=== PATIENT | female | born 1990 | race Caucasian/White ===

== ENCOUNTER 2020-07-20 22:14 | Inpatient (IN) | payer BC ==
--- NOTE | 2020-07-20 22:40 | PDOC ---
History of Present Illness - General Chief Complaint: Pain Stated Complaint: LT KNEE PAIN Time Seen by Provider: 07/20/20 22:29 History Source: Patient Exam Limitations: No Limitations - History of Present Illness Initial Comments: 07/20/20 22:33 This is a 30-year-old female who comes in complaining of left knee pain and a fever of 101. Patient injured her knee when she twisted it approximately 4 days ago. Patient does wear a brace and had an x-ray that was negative for any acute pathology. Patient has a history significant for ulcerative colitis and is on some immunosuppressant drugs for her ulcerative colitis. Patient comes in concerned that her knee could be the source of her fever. Allergies: as per nursing notes Past Medical History: As per HPI Social history: Lives with family. No smoking. No alcohol. No illicit drugs. Surgical history: None General: No fevers or chills, no weakness, no weight loss HEENT: No change in vision. No sore throat,. No ear pain CardioVascular: no chest discomfort. No shortness of breath Respiratory:No cough, or wheezing. Gastrointestinal: no nausea, vomiting, diarrhea or constipation, No rectal bleeding Genitourinary: No dysuria, hematuria, or frequency Musculoskeletal: No joint or muscle pain or swelling Neurologic: No headache, vertigo, dizziness or loss of consciousness Psychiatric: nor depression Skin: No rashes or easy bruising Endocrine: no increased thirst or abnormal weight change Allergic: no skin or latex allergy All other systems reviewed and normal GENERAL: The patient is awake, alert, and fully oriented, in no acute distress. HEENT:Head is normal with no signs of trauma. Eyes: Pupils equal, round and reactive to light, Ears, and Throat are normal. Neck is supple. No Lymphadenopathy. EXTREMITIES: The left knee is swollen with erythema and warmth in comparison to the right knee. There is an area of ascending lymphangitis medially Neurovascular distally is intact. NEUROLOGICAL: Normal speech, normal gait. PSYCH: Normal mood, normal affect. SKIN: Warm, Dry, normal turgor, no rashes or lesions noted. Assessment and plan: This is a 30-year-old female with ulcerative colitis on imm unosuppressants therapy who comes in with a red hot swollen knee with some ascending lymphangitis. Patient given Zosyn and will be admitted for treatment of cellulitis rule out septic joint Past History - Medical History Allergies/Adverse Reactions: Allergies Allergy/AdvReac Type Severity Reaction Status Date / Time codeine Allergy Verified 07/20/20 22:18 COPD: No GI Disorders: Yes (ULCERATIVE COLITIS) - Reproductive History Is Patient Now?: No - Psycho-Social/Smoking History Smoking History: Never smoked *Physical Exam - Vital Signs Last Vital Signs Temp Pulse Resp BP Pulse Ox 16 0/0 L 07/20/20 22:18 07/20/20 22:18 ED Treatment Course - LABORATORY CBC & Chemistry Diagram: 07/20/20 22:45 07/20/20 22:45 Discharge - Discharge Information Problems reviewed: Yes Clinical Impression/Diagnosis: Cellulitis of left leg Condition: Stable - Admission Yes - Follow up/Referral - Patient Discharge Instructions - Post Discharge Activity
[2020-07-20 23:11] LABS: BASO % 0.3 % (0-2.0); EOS % 0.8 % (0-4.5); HEMATOCRIT 44.5 % (32.4-45.2); HEMOGLOBIN 14.9 GM/dl (10.7-15.3); LYMPH % 22.2 % (8-40); MCH 30.7 pg (25.7-33.7); MCHC 33.5 g/dl (32.0-36.0); MEAN CELL VOLUME 91.8 fl (80-96); MEAN PLT VOLUME 9.4 fl (7.5-11.1); MONO % 6.6 % (3.8-10.2); NEUT % 70.1 % (42.8-82.8); PLATELET COUNT 449 K/MM3 (134-434); RBC 4.84 M/mm3 (3.60-5.2); RDW 13.3 % (11.6-15.6); WHITE BLOOD COUNT 14.3 K/mm3 (4.0-10.8)
[2020-07-20 23:20] LABS: ALBUMIN 4.4 g/dl (3.4-5.0); BILIRUBIN,TOTAL 1.6 mg/dl (0.2-1); CALCIUM 9.8 mg/dl (8.5-10); CREATININE 0.7 mg/dl (0.55-1.3); POTASSIUM 4.3 mmol/L (3.5-5.1); TOT PROT 8.7 g/dl (6.4-8.2)
[2020-07-21] MEDS ORDERED: PIPERACILLIN/TAZOB 3.375 GM 3.375 GM in DEXTROSE 5%-WATER - 50 ML IVPB ONE (00:33)
[2020-07-21] MEDS ORDERED: PIPERACILLIN/TAZOBACTAM 3.375 GM VIAL IVPB ONE (00:50)
[2020-07-21] MEDS ORDERED: IBUPROFEN 400 MG TABLET (FP) PO PRN (01:01)
[2020-07-21] MEDS: PIPERACILLIN/TAZOB 3.375 GM 3.375 GM in DEXTROSE 5%-WATER - 50 ML IVPB SCH ×2 (01:19→10:19)
[2020-07-21 02:11] LABS: EPI CELLS 10 /uL (0-25.1); HYALINE CASTS 0 /uL (0-3.1); PH,URINE 6.5 (5.0-8.0); URINE APPEARANCE CLEAR; URINE BACTERIA 321 /uL (0-1359); URINE BILIRUBIN NEGATIVE (NEGATIVE); URINE COLOR YELLOW; URINE GLUCOSE (UA) NEGATIVE (NEGATIVE); URINE KETONE NEGATIVE (NEGATIVE); URINE LEUK ESTERASE 1+ (NEGATIVE); URINE NITRITE NEGATIVE (NEGATIVE); URINE PROTEIN NEGATIVE (NEGATIVE); URINE RBC 17 /uL (0-23.9); URINE UROBILINOGEN 0.2 mg/dL (0.2-1.0); URINE WBC 74 /uL (0-25.8)
--- NOTE | 2020-07-21 09:40 | HP ---
CHIEF COMPLAINT: PCP: HISTORY OF PRESENT ILLNESS: This is a 30-year-old female medical condition ulcerative colitis, on some immunosuppressant drugs, who comes in complaining of left knee pain and a fever of 101. Patient injured her knee when she twisted it approximately 4 days ago. Patient does wear a brace and had an x-ray that was negative for any acute pathology. in ED, pt received zosyn and had allergic reaction, benadryl IV given. AM labs ordered ER course was notable for: (1)WBC 14.6 (2) ESR 21 (07/21) (3) Recent Travel: PAST MEDICAL HISTORY: [facility] PAST SURGICAL HISTORY:none Social History: Smoking:denies Alcohol:denies Drugs: denies Allergies codeine Allergy (Verified 07/20/20 22:18) HOME MEDICATIONS: Home Medications Medication Instructions Recorded Apriso 07/21/20 Mercaptopurine 07/21/20 Remicade Infusion - 07/21/20 Vienva-28 Tablet 07/21/20 REVIEW OF SYSTEMS CONSTITUTIONAL: +fever Absent: chills, diaphoresis, generalized weakness, malaise, loss of appetite, weight change HEENT: Absent: rhinorrhea, nasal congestion, throat pain, throat swelling, difficulty swallowing, mouth swelling, ear pain, eye pain, visual changes CARDIOVASCULAR: Absent: chest pain, syncope, palpitations, irregular heart rate, lightheadedness, peripheral edema RESPIRATORY: Absent: cough, shortness of breath, dyspnea with exertion, orthopnea, wheezing, stridor, hemoptysis GASTROINTESTINAL: Absent: abdominal pain, abdominal distension, nausea, vomiting, diarrhea, co nstipation, melena, hematochezia GENITOURINARY: Absent: dysuria, frequency, urgency, hesitancy, hematuria, flank pain, genital pain MUSCULOSKELETAL: +left knee joint swelling, pain Absent: myalgia, arthralgia, pain, neck pain SKIN: Absent: rash, itching, pallor HEMATOLOGIC/IMMUNOLOGIC: Absent: easy bleeding, easy bruising, lymphadenopathy, frequent infections ENDOCRINE: Absent: unexplained weight gain, unexplained weight loss, heat intolerance, cold intolerance NEUROLOGIC: Absent: headache, focal weakness or paresthesias, dizziness, unsteady gait, seizure, mental status changes, bladder or bowel incontinence PSYCHIATRIC: Absent: anxiety, depression, suicidal or homicidal ideation, hallucinations. PHYSICAL EXAMINATION Vital Signs - 24 hr 07/20/20 07/21/20 07/21/20 22:18 01:50 06:54 Temperature 99.9 F H 98 F 99.8 F H Pulse Rate 108 H 100 H 93 H Respiratory 16 18 18 Rate Blood Pressure 116/83 107/70 98/55 L O2 Sat by Pulse 98 100 100 Oximetry (%) GENERAL: Awake, alert, and fully oriented, in no acute distress. HEAD: Normal with no signs of trauma. EYES: Pupils equal, round and reactive to light, extraocular movements intact, sclera anicteric, conjunctiva clear. No lid lag. EARS, NOSE, THROAT: Ears normal, nares patent, oropharynx clear without exudates. Moist mucous membranes. NECK: Normal range of motion, supple without lymphadenopathy, JVD, or masses. LUNGS: Breath sounds equal, clear to auscultation bilaterally. No wheezes, and no crackles. No accessory muscle use. HEART: Regular rate and rhythm, normal S1 and S2 without murmur, rub or gallop. ABDOMEN: Soft, nontender, not distended, normoactive bowel sounds, no guarding, no rebound, no masses. No hepatomegaly or splenomegaly. MUSCULOSKELETAL: Normal range of motion at all joints. No bony deformities or tenderness. No CVA tenderness. UPPER EXTREMITIES: 2+ pulses, warm, well-perfused. No cyanosis. No clubbing. No peripheral edema. LOWER EXTREMITIES: left knee swelling noted, no erythema, 2+ pulses, warm, well- perfused. No calf tenderness. No peripheral edema. NEUROLOGICAL: Cranial nerves II-XII intact. Normal speech. Normal gait. PSYCHIATRIC: Cooperative. Good eye contact. Appropriate mood and affect. SKIN: Warm, dry, normal turgor, no rashes or lesions noted, normal capillary refill. Laboratory Results - last 24 hr 07/20/20 07/20/20 07/21/20 22:45 22:45 00:05 WBC 14.3 H RBC 4.84 Hgb 14.9 Hct 44.5 MCV 91.8 MCH 30.7 MCHC 33.5 RDW 13.3 Plt Count 449 H MPV 9.4 Absolute Neuts (auto) 10.1 Neutrophils % 70.1 Lymphocytes % 22.2 Monocytes % 6.6 Eosinophils % 0.8 Basophils % 0.3 ESR Sodium 139 Potassium 4.3 Chloride 104 Carbon Dioxide 24 Anion Gap 11 BUN 12.0 Creatinine 0.7 Est GFR (CKD-EPI)AfAm 132.87 Est GFR (CKD-EPI)NonAf 114.64 Random Glucose 114 H Calcium 9.8 Total Bilirubin 1.6 H AST 19 ALT 14 Alkaline Phosphatase 54 Total Protein 8.7 H Albumin 4.4 Urine Color Urine Appearance Urine pH Ur Specific [place] Urine Protein Urine Glucose (UA) Urine Ketones Urine Blood Urine Nitrite Urine Bilirubin Urine Urobilinogen Ur Leukocyte Esterase Urine WBC (Auto) Urine RBC (Auto) Urine Casts (Auto) U Epithel Cells (Auto) Urine Bacteria (Auto) Urine HCG, Qual Negative 07/21/20 07/21/20 00:15 07:40 WBC RBC Hgb Hct MCV MCH MCHC RDW Plt Count MPV Absolute Neuts (auto) Neutrophils % Lymphocytes % Monocytes % Eosinophils % Basophils % ESR 21 H Sodium Potassium Chloride Carbon Dioxide Anion Gap BUN Creatinine Est GFR (CKD-EPI)AfAm Est GFR (CKD-EPI)NonAf Random Glucose Calcium Total Bilirubin AST ALT Alkaline Phosphatase Total Protein Albumin Urine Color Yellow Urine Appearance Clear Urine pH 6.5 Ur Specific [place] 1.004 L Urine Protein Negative Urine Glucose (UA) Negative Urine Ketones Negative Urine Blood 1+ H Urine Nitrite Negative Urine Bilirubin Negative Urine Urobilinogen 0.2 Ur Leukocyte Esterase 1+ H Urine WBC (Auto) 74 Urine RBC (Auto) 17 Urine Casts (Auto) 0 U Epithel Cells (Auto) 10 Urine Bacteria (Auto) 321 Urine HCG, Qual ASSESSMENT/PLAN: Alisa Ramirez is a 30 yr old F, medical condition Ulcerative colitis, on immunosupressant drugs admitted for Admitting Diagnosis Left knee cellulitis vs Septic joint Chronic Conditions Ulcerative Colitis #Left knee Cellulitis vs septic joint -ID consult -reaction noted from Zosyn -blood cx in process -ESR 21 -MRI left LE ordered -Ortho consult #[facility] [employer] meds to brought from home -Remicade last infusion 07/13, receives Q7 weeks - [phone] (GI) Full Code Family Medical History Family History: As Documented Visit type - Emergency Visit Emergency Visit: Yes ED Registration Date: 07/21/20 Care time: The patient presented to the Emergency Department on the above date and was hospitalized for further evaluation of their emergent condition. - New Patient This patient is new to me today: Yes Date on this admission: 07/21/20 - Critical Care Critical Care patient: No
[2020-07-21 09:50] LABS: BASO % 0.8 % (0-2.0); EOS % 1.1 % (0-4.5); HEMATOCRIT 37.4 % (32.4-45.2); HEMOGLOBIN 12.6 GM/dl (10.7-15.3); LYMPH % 18.1 % (8-40); MCH 30.2 pg (25.7-33.7); MCHC 33.6 g/dl (32.0-36.0); MEAN PLT VOLUME 10.1 fl (7.5-11.1); MONO % 10.9 % (3.8-10.2); NEUT % 69.1 % (42.8-82.8); PLATELET COUNT 356 K/MM3 (134-434); RBC 4.16 M/mm3 (3.60-5.2); RDW 12.8 % (11.6-15.6); WHITE BLOOD COUNT 10.3 K/mm3 (4.0-10.8)
[2020-07-21 09:58] LABS: ALBUMIN 3.5 g/dl (3.4-5.0); BILIRUBIN,TOTAL 2.3 mg/dl (0.2-1); CALCIUM 8.9 mg/dl (8.5-10); CREATININE 0.8 mg/dl (0.55-1.3); MAGNESIUM 1.8 mg/dL (1.8-2.4); POTASSIUM 3.8 mmol/L (3.5-5.1); TOT PROT 6.9 g/dl (6.4-8.2)
[2020-07-21] MEDS ORDERED: PIPERACILLIN/TAZOB 3.375 GM 3.375 GM in DEXTROSE 5%-WATER - 50 ML IVPB SCH (10:00)
--- NOTE | 2020-07-21 10:38 | CON.ID ---
Consult Consult Specialty:: infectious diseases Referred by:: Hodan Reason for Consultation:: cellulitis of the leg - History of Present Illness Chief Complaint: swelling of the left leg /and the left knee joint History of Present Illness: 30-year-old female medical condition ulcerative colitis, on some immunosuppressant drugs, who comes in complaining of left knee pain and a fever of 101. Patient injured her knee when she twisted it approximately 4 days ago. Patient does wear a brace and had an x-ray that was negative for any acute pathology. patient was given zosyn and mentions that she developed some itching also she mentions that she actually did not twist it,but while getting up felt a crack and then the knee started swelling and then extended to the thigh - History Source History Provided By: Patient Limitations to Obtaining History: No Limitations - Past Medical History ...LMP: 07/18/20 ...: No - Smoking History Smoking history: Never smoked Home Medications - Allergies Allergies/Adverse Reactions: Allergies Allergy/AdvReac Type Severity Reaction Status Date / Time codeine Allergy Verified 07/20/20 22:18 - Home Medications Home Medications: Ambulatory Orders Apriso 07/21/20 Mercaptopurine 07/21/20 Remicade Infusion - 07/21/20 Vienva-28 Tablet 07/21/20 Review of Systems - Review of Systems Constitutional: reports: No Symptoms Eyes: reports: No Symptoms HENT: reports: No Symptoms Neck: reports: No Symptoms Cardiovascular: reports: No Symptoms Respiratory: reports: No Symptoms Gastrointestinal: reports: No Symptoms Genitourinary: reports: No Symptoms Musculoskeletal: reports: Joint Swelling, Other Integumentary: reports: No Symptoms Neurological: reports: No Symptoms Endocrine: reports: No Symptoms Hematology/Lymphatic: reports: No Symptoms Psychiatric: reports: No Symptoms Physical Exam Vital Signs: Vital Signs Temperature 99.8 F H 07/21/20 06:54 Pulse Rate 93 H 07/21/20 06:54 Respiratory Rate 18 07/21/20 06:54 Blood Pressure 98/55 L 07/21/20 06:54 O2 Sat by Pulse Oximetry (%) 100 07/21/20 09:00 Constitutional: Yes: Well Nourished, Calm, Mild Distress, Thin Eyes: Yes: Conjunctiva Clear HENT: Yes: Atraumatic, Normocephalic Neck: Yes: Supple, Trachea Midline Cardiovascular: Yes: Regular Rate and Rhythm Respiratory: Yes: Regular, CTA Bilaterally Gastrointestinal: Yes: Normal Bowel Sounds, Soft Musculoskeletal: Yes: WNL Extremities: Yes: Other (swelling of the leg from knee joint upwards) Integumentary: No: Erythema Neurological: Yes: Alert, Oriented Psychiatric: Yes: Alert, Oriented Labs: CBC, BMP 07/21/20 07:40 07/21/20 07:40 Imaging - Results Chest X-ray: Report Reviewed, Image Reviewed Assessment/Plan this patient with h/o of colitis coming in with swelling of the knee joint and the thigh left side s/p getting up from the floor and hearing a crack at this moment the patient is ahving swelling of the leg no erythema i have low suspicion for cellulitis i think patient needs mri of the leg to r/o any pathological cause inside i am going to hold off on any abx and monitor wbc i am leaning more towards trauma side from her history if patient spikes any fever or wbc starts increasing will start abx
--- NOTE | 2020-07-21 11:49 | CONSULT ---
Consult - text type - Consultation Consultation Note: ORTHOPEDIC SURGERY CONSULTATION NOTE Department of Orthopedic Surgery HISTORY OF PRESENT ILLNESS Ms. Ramirez is a 30 year old female who presents to [facility] with left knee pain and swelling. The orthopedic service was consulted for rule out septic joint. The patient states she felt a crack in her knee approximately 1 week ago that caused pain and swelling in her eft knee. She was seen on Thursday by Dr. Mccabe, who o rdered an MRI of her knee. The patient states she developed fever like symptoms last night and came to the ER. The patient notes pain and swelling in her knee, that causes her difficulty ambulating. Denies any other injuries. Denies numbness, tingling. Denies tobacco use, drug use, alcohol abuse. Patient is on immunosuppressants for UC. The patient lives with family and uses no assistive devices at baseline. FAMILY HISTORY non-contributory REVIEW OF SYMPTOMS A twelve-point review of systems was performed and was negative except as noted in HPI. PHYSICAL EXAM Constitutional: Alert and oriented to person, place, and time. Appears well- developed and well-nourished. No acute distress, appropriate mood and affect. Left Lower Extremity: Skin warm, dry, and intact; no lesions, rashes or ulcers noted. There is an effusion present. Muscle mass otherwise equal and symmetric to contralateral side. No atrophy noted. No masses noted. Patient has medial joint line tenderness; nontender throughout rest of extremity. No cords or calf tenderness No significant calf/ankle edema. Patient has LROM, however has no pain with ROM through arc of 0-60 degrees of flexion passively. Full passive and active ROM of the ankle and foot and toes, free from pain. Joints stable with no pathologic laxity. EHL/TA/GS motor intact; SILT distally; 2+ DP pulses; Cap refill brisk. Tone and reflexes normal. Active Problems Problem Status Category Onset Cellulitis of left leg Acute Medical Social History Smoking history Never smoked Allergies Allergy/AdvReac Type Severity Reaction Status Date / Time codeine Allergy Verified 07/20/20 22:18 Active Medications Generic Name Dose Route Start Last Admin Trade Name Freq PRN Reason Stop Dose Admin Acetaminophen 650 mg 07/21/20 00:59 Tylenol - PO Q6H PRN FEVER Piperacillin Sod/Tazobactam 50 mls @ 100 mls/hr 07/21/20 02:00 07/21/20 10:19 Sod 3.375 gm/ Dextrose IVPB 07/21/20 18:29 Not Given Q8H-IV PRIMO Protocol Ibuprofen 400 mg 07/21/20 01:01 Motrin - PO Q6H PRN PAIN LEVEL 4 - 6 Vital Signs (last) Temp Pulse Resp BP Pulse Ox 98.4 F 96 H 18 105/65 100 07/21/20 10:47 07/21/20 10:47 07/21/20 10:47 07/21/20 10:47 07/21/20 10:47 Intake and Output 07/19/20 07/20/20 07/21/20 23:59 23:59 23:59 Intake Total 615 Balance 615 Intake: Oral 495 Oral Supplement 120 Other: Voiding Method Toilet # Unmeasured Voids Void 0 Bowel Movement No Weight 128 lb 116 lb 3.2 oz Height 5 ft 8 in 8 ft 8 in Body Mass Index (BMI) 19.4 7.5 Weight Measurement Method Standing Scale Weight Measurement Method Est/Stated by Patient Laboratory 07/21/20 07:40 07/21/20 07:40 ESR: 21 Urinalysis: +Leuk Est IMAGING MRI Knee Pending. ASSESSMENT AND PLAN Ms. Ramirez is a 30 year old female presenting with left knee pain and knee effusion with increased ESR, increased WBC yesterday, and fever yesterday. We have reviewed the imaging and clinical findings in detail, as well as their potential implications. After appropriate informed discussion, the patients knee was aspirated. 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 Fever and increased WBC and ESR likely due to +UTI. Will confirm with synovial fluid analysis. FU synovial fluid results: cell count, culture, gram stain, and crystals. NPO WBAT CBC/BMP/Coags FU CRP PROCEDURE NOTE: After obtaining informed consent, the patient's left knee was prepped in the normal sterile fashion, and 60cc's of straw-colored fluid was aspirated from her knee with an 18 gauge needle. The patient tolerated this well, and her aspira tion site was cleaned and dressed with 4x4's and an STACIE bandage. Patient reported improvement in pain symptoms, and increased ROM 0-95 degrees. All questions were answered. Thank you for involving our team in the care of this patient. We will follow the patient with you. Please call us with alfa escobedo.
[2020-07-21 13:16] LABS: INR 1.36 (0.82-1.09); PROTHROMBIN TIME (PATIENT) 15.1 SEC (10.2-13.0)
[2020-07-21 14:22] LABS: BF WBC & OTHER NUCLEATED CELLS 49886 /mm3
[2020-07-21] MEDS ORDERED: KETOROLAC TROMETHAMINE 15 MG/ML VIAL IVPUSH ONE (14:48)
[2020-07-21 15:25] LABS: BODY FLUID HISTIOCYTES 10 %; BODY FLUID MONOCYTE 2 %
[2020-07-21] MEDS: ACETAMINOPHEN 325 MG TABLET (FP) PO PRN (21:26)
[2020-07-22] MEDS: ACETAMINOPHEN 325 MG TABLET (FP) PO PRN ×2 (04:45→17:11)
[2020-07-22 08:19] LABS: BASO % 0.5 % (0-2.0); EOS % 1.3 % (0-4.5); HEMATOCRIT 37.2 % (32.4-45.2); HEMOGLOBIN 12.5 GM/dL (10.7-15.3); LYMPH % 24.7 % (8-40); MCH 29.9 pg (25.7-33.7); MCHC 33.6 g/dl (32.0-36.0); MEAN CELL VOLUME 89.1 fl (80-96); MEAN PLT VOLUME 9.1 fl (7.5-11.1); MONO % 13.2 % (3.8-10.2); NEUT % 60.3 % (42.8-82.8); PLATELET COUNT 326 K/MM3 (134-434); RBC 4.18 M/mm3 (3.60-5.2); RDW 13.7 % (11.6-15.6); WHITE BLOOD COUNT 11.1 K/mm3 (4.0-10.0)
[2020-07-22 08:44] LABS: ALBUMIN 3.2 g/dl (3.4-5.0); BILIRUBIN,TOTAL 2.3 mg/dL (0.2-1); BLOOD UREA NITROGEN 10.8 mg/dL (7-18); CALCIUM 8.8 mg/dL (8.5-10.1); CREATININE 0.8 mg/dL (0.55-1.3); MAGNESIUM 2.1 mg/dL (1.8-2.4); POTASSIUM 4.5 mmol/L (3.5-5.1); TOT PROT 7.2 g/dl (6.4-8.2)
--- NOTE | 2020-07-22 09:39 | PN ---
Progress Note (short form) - Note Progress Note: ORTHOPEDIC SURGERY PROGRESS NOTE Department of Orthopedic Surgery SUBJECTIVE No acute events overnight. No complaints currently. Denies chest pain, shortness of breath, or calf pain. No nausea or vomiting. Tolerating oral intake. Pain controlled. PHYSICAL EXAMINATION Constitutional: Alert and oriented to person, place, and time. Appears well- developed and well-nourished. No acute distress, appropriate mood and affect. Left Lower Extremity: Skin warm, dry, and intact; no lesions, rashes or ulcers noted. There is an effusion present. Muscle mass otherwise equal and symmetric to contralateral side. No atrophy noted. No masses noted. Patient has medial joint line tenderness; nontender throughout rest of extremity. No cords or calf tenderness No significant calf/ankle edema. Patient has LROM, however has no pain with ROM through arc of 0-95 degrees of flexion actively and passively. Full passive and active ROM of the ankle and foot and toes, free from pain. Joints stable with no pathologic laxity. EHL/TA/GS motor intact; SILT distally; 2+ DP pulses; Cap refill brisk. Tone and reflexes normal. DVT Exam: No evidence of DVT seen on physical exam; No cords or calf tenderness; No significant calf/ankle edema. Intake & Output 07/20/20 07/21/20 07/22/20 23:59 23:59 23:59 Intake Total 915 120 Balance 915 120 Intake: Oral 795 120 Oral Supplement 120 Other: Voiding Method Toilet Toilet # Unmeasured Voids Void 0 Bowel Movement No No Weight 128 lb 116 lb 3.2 oz Height 5 ft 8 in 8 ft 8 in Body Mass Index (BMI) 19.4 7.5 Weight Measurement Method Standing Scale Weight Measurement Method Est/Stated by Patient Active Medications Generic Name Dose Route Start Last Admin Trade Name Freq PRN Reason Stop Dose Admin Acetaminophen 650 mg 07/21/20 00:59 07/22/20 04:45 Tylenol - PO 650 mg Q6H PRN Administration FEVER Ibuprofen 400 mg 07/21/20 01:01 Motrin - PO Q6H PRN PAIN LEVEL 4 - 6 Vital Signs (last) Temp Pulse Resp BP Pulse Ox 100 F H 90 18 100/62 98 07/22/20 06:00 07/22/20 06:00 07/22/20 06:00 07/22/20 06:00 07/22/20 06:00 Laboratory (coagulation) PT with INR 15.1 SEC (10.2-13.0) H 07/21/20 13:00 Laboratory 07/22/20 06:50 07/22/20 06:50 MRI Left Knee: Large effusion, no meniscus or ligamentous injuries. No fractures, bony lesions, or significant arthrosis seen. ASSESSMENT AND PLAN Ms. Ramirez is a 30 year old female presenting with left knee pain and knee effusion with increased ESR, increased WBC, and low grade fever. We have reviewed the imaging and clinical findings in detail, as well as their potential implications. 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 Fever and increased WBC, ESR/CRP likely due to +UTI. - FU synovial fluid culture results; gram stain shows no organisms - FU Blood culture (Currently NGTD) - FU Rheumatology consult - FU Infectious disease recs - Pain control: Transition to oral pain medications, minimize narcotic use - DVT prophylaxis - Ice/Elevation of left knee - Elevate HOB, encourage oral intake - Appreciate medical management (Nutrition optimization, decubitus precautions heel/sacrum) - WBAT LLE - Continue Medical management
--- NOTE | 2020-07-22 11:39 | PN ---
Physical Exam: SUBJECTIVE: Patient seen and examined at the bedside. denies any pain of her left knee, just discomfort. OBJECTIVE: Patient is a 30 year-old female medical condition ulcerative colitis, on some immunosuppressant drugs, who comes in complaining of left knee pain and a fever of 101f. Patient injured her knee when she twisted it approximately 4 days ago. Patient does wear a brace and had an x-ray that was negative for any acute pathology. in ED, pt received zosyn and had allergic reaction, benadryl IV given. Per ID, monitor off antibiotics. Patient seen by Ortho, synovial fluid drained at bedside, gram stain pending, crystals negative. if gram stain positive, will likely go to OR. Vital Signs Period Temp Pulse Resp BP Sys/Pelletier Pulse Ox Last 24 Hr 98.0 F-100.5 F 90-99 16-18 92-105/53-62 96-100 GENERAL: The patient is awake, alert, and fully oriented, in no acute distress. HEAD: Normal with no signs of trauma. EYES: PERRL, extraocular movements intact, sclera anicteric, conjunctiva clear. No ptosis. ENT: Ears normal, nares patent, oropharynx clear without exudates, moist mucous membranes. NECK: Trachea midline, full range of motion, supple. LUNGS: Breath sounds equal, clear to auscultation bilaterally, no wheezes, no crackles, no accessory muscle use. HEART: Regular rate and rhythm, S1, S2 without murmur, rub or gallop. ABDOMEN: Soft, nontender, nondistended, normoactive bowel sounds EXTREMITIES:left knee edema, mild erythma NEUROLOGICAL: Normal speech, gait not observed. PSYCH: Normal mood, normal affect. Laboratory Results - last 24 hr 07/21/20 07/21/20 07/21/20 12:30 12:30 12:45 WBC RBC Hgb Hct MCV MCH MCHC RDW Plt Count MPV Absolute Neuts (auto) Neutrophils % Lymphocytes % Monocytes % Eosinophils % Basophils % Nucleated RBC % PT with INR INR Sodium Potassium Chloride Carbon Dioxide Anion Gap BUN Creatinine Est GFR (CKD-EPI)AfAm Est GFR (CKD-EPI)NonAf Random Glucose Calcium Magnesium Total Bilirubin AST ALT Alkaline Phosphatase C-Reactive Protein Total Protein Albumin Fluid Source Synovial Fluid WBC 94874 Fluid RBC 3337 Fluid Neutrophils 86 Fluid Lymphocytes 1 Pleural Monocytes 2 Pleural Histocytes 10 Synovial Crystals Negative Blood Type O POSITIVE Antibody Screen Negative 07/21/20 07/21/20 07/21/20 13:00 13:00 13:00 WBC RBC Hgb Hct MCV MCH MCHC RDW Plt Count MPV Absolute Neuts (auto) Neutrophils % Lymphocytes % Monocytes % Eosinophils % Basophils % Nucleated RBC % PT with INR 15.1 H INR 1.36 H Sodium Potassium Chloride Carbon Dioxide Anion Gap BUN Creatinine Est GFR (CKD-EPI)AfAm Est GFR (CKD-EPI)NonAf Random Glucose Calcium Magnesium Total Bilirubin AST ALT Alkaline Phosphatase C-Reactive Protein 12.0 H Total Protein Albumin Fluid Source Fluid WBC Fluid RBC Fluid Neutrophils Fluid Lymphocytes Pleural Monocytes Pleural Histocytes Synovial Crystals Blood Type O POSITIVE Antibody Screen 07/22/20 07/22/20 06:50 06:50 WBC 11.1 H RBC 4.18 Hgb 12.5 Hct 37.2 MCV 89.1 MCH 29.9 MCHC 33.6 RDW 13.7 Plt Count 326 MPV 9.1 Absolute Neuts (auto) 6.7 Neutrophils % 60.3 Lymphocytes % 24.7 Monocytes % 13.2 H Eosinophils % 1.3 Basophils % 0.5 Nucleated RBC % 0 PT with INR INR Sodium 137 Potassium 4.5 Chloride 106 Carbon Dioxide 27 Anion Gap 4 L BUN 10.8 Creatinine 0.8 Est GFR (CKD-EPI)AfAm 113.06 Est GFR (CKD-EPI)NonAf 97.55 Random Glucose 98 Calcium 8.8 Magnesium 2.1 Total Bilirubin 2.3 H AST 7 L ALT 12 L Alkaline Phosphatase 48 C-Reactive Protein Total Protein 7.2 Albumin 3.2 L Fluid Source Fluid WBC Fluid RBC Fluid Neutrophils Fluid Lymphocytes Pleural Monocytes Pleural Histocytes Synovial Crystals Blood Type Antibody Screen Active Medications Generic Name Dose Route Start Last Admin Trade Name Freq PRN Reason Stop Dose Admin Acetaminophen 650 mg 07/21/20 00:59 07/22/20 04:45 Tylenol - PO 650 mg Q6H PRN Administration FEVER Ibuprofen 400 mg 07/21/20 01:01 Motrin - PO Q6H PRN PAIN LEVEL 4 - 6 ASSESSMENT/PLAN: Problem List - Problems (1) Ulcerative colitis Assessment/Plan: on Remicade infusions, last received on 07/13/20 and receives q 7 weeks. Follows with GI as an outpatient. Code(s): K51.90 - ULCERATIVE COLITIS, UNSPECIFIED, WITHOUT COMPLICATIONS (2) Left knee injury Assessment/Plan: left knee swelling/possible cellulitis vs septic joint. patient treated with zosyn, but had an allergic reaction (leg welts) and given benadryl. ID gill wng. Zosyn allergy listed on EMR ESR 21 MRI of left ext ordered and pending official read ortho following and patient s/p synovial fluid collection. blood cultures negative Rheumatology consulted Pain control: patient denies severe pain, on tylenol/motril prn ice/Elevation of left knee Off load left leg to prevent pressure sores, start on multivitamin, supplements Code(s): S89.92XA - UNSPECIFIED INJURY OF LEFT LOWER LEG, INITIAL ENCOUNTER Visit type - Emergency Visit Emergency Visit: Yes ED Registration Date: 07/21/20 Care time: The patient presented to the Emergency Department on the above date and was hospitalized for further evaluation of their emergent condition. - New Patient This patient is new to me today: Yes Date on this admission: 07/22/20 - Critical Care Critical Care patient: No - Discharge Referral Referred to [facility] Med P.C.: No
--- NOTE | 2020-07-22 21:41 | EKG ---
Test Reason : Blood Pressure : / mmHG Vent. Rate : 085 BPM Atrial Rate : 085 BPM P-R Int : 152 ms QRS Dur : 074 ms QT Int : 372 ms P-R-T Axes : 035 077 110 degrees QTc Int : 442 ms NORMAL SINUS RHYTHM NONSPECIFIC ST ABNORMALITY ABNORMAL ECG NO PREVIOUS ECGS AVAILABLE Confirmed by ISHAN KINNEY MD ([id number]) on 07/22/2020 9:40:58 PM Referred By: MD COPELAND Confirmed By:ISHAN KINNEY MD
[2020-07-23] MEDS: ACETAMINOPHEN 325 MG TABLET (FP) PO PRN ×2 (02:15→16:40)
[2020-07-23 04:55] LABS: EPI CELLS >36 /uL (0-25.1); HYALINE CASTS 12 /uL (0-3.1); PH,URINE 5.5 (5.0-8.0); URINE APPEARANCE CLOUDY; URINE BACTERIA 33 /uL (0-1359); URINE BILIRUBIN NEGATIVE (NEGATIVE); URINE COLOR DK YELLOW; URINE GLUCOSE (UA) NEGATIVE (NEGATIVE); URINE KETONE TRACE (NEGATIVE); URINE LEUK ESTERASE 1+ (NEGATIVE); URINE NITRITE NEGATIVE (NEGATIVE); URINE PROTEIN 1+ (NEGATIVE); URINE RBC 34 /uL (0-23.9); URINE UROBILINOGEN 0.2 mg/dL (0.2-1.0); URINE WBC 154 /uL (0-25.8)
[2020-07-23 08:17] LABS: BASO % 0.5 % (0-2.0); EOS % 0.8 % (0-4.5); HEMATOCRIT 35.8 % (32.4-45.2); LYMPH % 25.3 % (8-40); MCH 29.8 pg (25.7-33.7); MCHC 33.4 g/dl (32.0-36.0); MEAN CELL VOLUME 89.2 fl (80-96); MEAN PLT VOLUME 8.7 fl (7.5-11.1); MONO % 12.4 % (3.8-10.2); PLATELET COUNT 325 K/MM3 (134-434); RBC 4.02 M/mm3 (3.60-5.2); RDW 13.2 % (11.6-15.6); WHITE BLOOD COUNT 10.9 K/mm3 (4.0-10.0)
[2020-07-23 08:48] LABS: BILIRUBIN,TOTAL 1.4 mg/dL (0.2-1); BLOOD UREA NITROGEN 9.9 mg/dL (7-18); CALCIUM 8.9 mg/dL (8.5-10.1); CREATININE 0.8 mg/dL (0.55-1.3); MAGNESIUM 2.4 mg/dL (1.8-2.4); POTASSIUM 4.7 mmol/L (3.5-5.1)
--- NOTE | 2020-07-23 09:31 | PN ---
Progress Note (short form) - Note Progress Note: ORTHOPEDIC SURGERY PROGRESS NOTE Department of Orthopedic Surgery SUBJECTIVE No acute events overnight. No complaints currently. Denies chest pain, shortness of breath, or calf pain. No nausea or vomiting. Tolerating oral intake. Did have a fever overnight. Pain controlled. PHYSICAL EXAMINATION Constitutional: Alert and oriented to person, place, and time. Appears well- developed and well-nourished. No acute distress, appropriate mood and affect. Left Lower Extremity: Skin warm, dry, and intact; no lesions, rashes or ulcers noted. There is an effusion present. Muscle mass otherwise equal and symmetric to contralateral side. No atrophy noted. No masses noted. Patient has medial joint line tenderness; nontender throughout rest of extremity. No cords or calf tenderness No significant calf/ankle edema. Patient has LROM, however has no pain with ROM through arc of 0-80 degrees of flexion actively and passively. Full passive and active ROM of the ankle and foot and toes, free from pain. Joints stable with no pathologic laxity. EHL/TA/GS motor intact; SILT distally; 2+ DP pulses; Cap refill brisk. Tone and reflexes normal. DVT Exam: No evidence of DVT seen on physical exam; No cords or calf tenderness; No significant calf/ankle edema. Intake & Output 07/21/20 07/22/20 07/23/20 23:59 23:59 23:59 Intake Total 915 520 480 Balance 915 520 480 Intake: Oral 795 520 480 Oral Supplement 120 Other: Voiding Method Toilet Toilet Toilet # Unmeasured Voids Void 0 2 2 Bowel Movement No No Weight 116 lb 3.2 oz Height 8 ft 8 in Body Mass Index (BMI) 7.5 Weight Measurement Method Standing Scale Active Medications Generic Name Dose Route Start Last Admin Trade Name Freq PRN Reason Stop Dose Admin Acetaminophen 650 mg 07/21/20 00:59 07/23/20 02:15 Tylenol - PO 650 mg Q6H PRN Administration FEVER Ibuprofen 400 mg 07/21/20 01:01 Motrin - PO Q6H PRN PAIN LEVEL 4 - 6 Multivitamins/Minerals/Vitamin C 1 tab 07/23/20 10:00 Tab-A-Vit - PO DAILY PRIMO Vital Signs (last) Temp Pulse Resp BP Pulse Ox 98.0 F 81 18 94/60 99 07/23/20 06:00 07/23/20 06:00 07/23/20 06:00 07/23/20 06:00 07/23/20 06:00 Laboratory (coagulation) PT with INR 15.1 SEC (10.2-13.0) H 07/21/20 13:00 Laboratory 07/23/20 07:29 07/23/20 07:29 MRI Left Knee: Large effusion, no meniscus or ligamentous injuries. No fractures, bony lesions, or significant arthrosis seen. ASSESSMENT AND PLAN Ms. Ramirez is a 30 year old female presenting with left knee pain and knee effusion with increased ESR, increased WBC, and low grade fevers. We have reviewed the imaging and clinical findings in detail, as well as their potential implications. 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 Fever and increased WBC, ESR/CRP likely due to +UTI. - FU synovial fluid culture results; (Currently NGTD); gram stain shows no organisms - FU Blood culture (Currently NGTD) - FU Rheumatology consult - FU Infectious disease recs - Pain control: Transition to oral pain medications, minimize narcotic use - DVT prophylaxis - Ice/Elevation of left knee - Elevate HOB, encourage oral intake - Appreciate medical management (Nutrition optimization, decubitus precautions heel/sacrum) - WBAT LLE - Continue Medical management
[2020-07-23] MEDS ORDERED: cefTRIAXone SODIUM 1 GM VIAL ONE (09:43)
[2020-07-23] MEDS ORDERED: DEXTROSE 5%-WATER - 50 ML IVPB ONE (09:43)
[2020-07-23 09:45] VITALS: BMI 17.6
[2020-07-23] MEDS: MULTIVITAMINS (DAILY MVI) TABLET (FP) PO SCH (09:58)
[2020-07-23] MEDS: CEFTRIAXONE 1 GM in DEXTROSE 5%-WATER - 50 ML IVPB SCH (09:58)
[2020-07-23] MEDS ORDERED: LIDOCAINE HCL 1%, 10 MG/ML (20ML VIAL) NR ONE (11:00)
[2020-07-23] MEDS: SODIUM CHLORIDE 1,000 ML IV SCH (11:10)
[2020-07-23] MEDS ORDERED: diphenhydrAMINE HCL 25 MG CAPSULE (FP) PO PRN (11:15)
--- NOTE | 2020-07-23 11:15 | PN ---
Physical Exam: SUBJECTIVE: Patient seen and examined. denies any severe pain, tylenol sufficient. toradol prn if pain becomes severe patient granted me permission to speak to her father in law who is a physician: Dr. Ramirez [phone]. POC discussed with him. OBJECTIVE: Patient is a 30 year-old female medical condition ulcerative colitis, on immunosuppressant therapy. She initially presented to [facility] forl eft knee pain and a fever of 101f. Patient reported that she injured her knee when she twisted it approximately 4 days prior. In ED, pt received zosyn and had allergic reaction, benadryl IV given. Patient seen by Ortho, synovial fluid drained at bedside, gram stain pending, crystals negative. Dr Peck (rheumotologist) evaluated patient at the bedside and knee was aspirated. ----- febrile overnight to 103F at 2a.m.. This a.m. ordered lactic acid, repeat blood cultures, ua and urine culture seen by dr peck and left knee aspirated/cultures sent to lab spoke to dr orellana, orthopedist this a.m. discussed with dr pichardo on 07/22, and recommended patient to be monitored off antibiotics. spoke to Dr Pichardo ths a.m. , and made aware of fever 103, recommended ceftriaxone to be started. chest xray to complete septic workup UA shows signs of UTI, UC ordered. per ID can start on Ceftriaxone (pt showed allergic reaction to pcn) imaging: chest xray 07/23: no acute pathology left knee MRI: large intra articular effusion with soft tissue swelling surrounding the knee joint. findings may be post traumatic with partial quad tendon tear underlying inflammatory/infectious process to be excluded. Vital Signs Period Temp Pulse Resp BP Sys/Pelletier Pulse Ox Last 24 Hr 97.9 F-103.1 F 81-109 18-18 94-102/60-66 97-99 GENERAL: The patient is awake, alert, and fully oriented, in no acute distress. HEAD: Normal with no signs of trauma. EYES: PERRL, extraocular movements intact, sclera anicteric, conjunctiva clear. No ptosis. ENT: Ears normal, nares patent, oropharynx clear without exudates, moist mucous membranes. NECK: Trachea midline, full range of motion, supple. LUNGS: Breath sounds equal, clear to auscultation bilaterally, no wheezes, no crackles, no accessory muscle use. HEART: Regular rate and rhythm, S1, S2 without murmur, rub or gallop. ABDOMEN: Soft, nontender, nondistended, normoactive bowel sounds EXTREMITIES:left knee edema, mild erythma - asprited at bedside today by dr peck NEUROLOGICAL: Normal speech, gait not observed. PSYCH: Normal mood, normal affect. Laboratory Results - last 24 hr 07/23/20 07/23/20 07/23/20 03:30 07:29 07:29 WBC 10.9 H RBC 4.02 Hgb 12.0 Hct 35.8 MCV 89.2 MCH 29.8 MCHC 33.4 RDW 13.2 Plt Count 325 MPV 8.7 Absolute Neuts (auto) 6.6 Neutrophils % 61.0 Lymphocytes % 25.3 Monocytes % 12.4 H Eosinophils % 0.8 Basophils % 0.5 Nucleated RBC % 0 Sodium 137 Potassium 4.7 Chloride 105 Carbon Dioxide 26 Anion Gap 6 L BUN 9.9 Creatinine 0.8 Est GFR (CKD-EPI)AfAm 113.06 Est GFR (CKD-EPI)NonAf 97.55 Random Glucose 94 Calcium 8.9 Magnesium 2.4 Total Bilirubin 1.4 H AST 5 L ALT 10 L Alkaline Phosphatase 52 Total Protein 7.0 Albumin 3.0 L Urine Color Dk yellow Urine Appearance Cloudy Urine pH 5.5 Ur Specific [place] 1.023 Urine Protein 1+ H Urine Glucose (UA) Negative Urine Ketones Trace H Urine Blood 1+ H Urine Nitrite Negative Urine Bilirubin Negative Urine Urobilinogen 0.2 Ur Leukocyte Esterase 1+ H Urine WBC (Auto) 154 Urine RBC (Auto) 34 Urine Casts (Auto) 12 U Epithel Cells (Auto) >36 Urine Bacteria (Auto) 33 Active Medications Generic Name Dose Route Start Last Admin Trade Name Freq PRN Reason Stop Dose Admin Acetaminophen 650 mg 07/21/20 00:59 07/23/20 02:15 Tylenol - PO 650 mg Q6H PRN Administration FEVER Ceftriaxone Sodium 1 gm/ 50 mls @ 200 mls/hr 07/23/20 10:00 07/23/20 09:58 Dextrose IVPB 200 mls/hr DAILY PRIMO Administration Protocol Sodium Chloride 1,000 mls @ 50 mls/hr 07/23/20 10:45 07/23/20 11:10 Normal Saline - IV 07/24/20 10:43 50 mls/hr ASDIR PRIMO Administration Multivitamins/Minerals/Vitamin C 1 tab 07/23/20 10:00 07/23/20 09:58 Tab-A-Vit - PO 1 tab DAILY PRIMO Administration ASSESSMENT/PLAN: Problem List - Problems (1) Ulcerative colitis Assessment/Plan: on Remicade infusions, last received on 07/13/20 and receives q 7 weeks. Follows with GI as an outpatient. no acute issues, continue home medications and monitor Code(s): K51.90 - ULCERATIVE COLITIS, UNSPECIFIED, WITHOUT COMPLICATIONS (2) Left knee injury Assessment/Plan: left knee swelling/possible cellulitis vs septic joint. patient treated with zosyn, but had an allergic reaction (leg welts) and given benadryl. Zosyn allergy listed on EMR ESR 21 MRI of left ext: left knee MRI: large intra articular effusion with soft tissue swelling surrounding the knee joint. findings may be post traumatic with partial quad tendon tear underlying inflammatory/infectious process to be excluded. ortho following and patient s/p synovial fluid collection, seen by rheumatology and knee aspirated today, cultures sent blood cultures negative to date but had high grade fever of 103 this morning and ceftriaxone 1 gram initiated. patient snyder cultured Rheumatology consulted and aspirated left knee today, cultures sent Pain control: patient denies severe pain, on tylenol/lidocaine. toradol for severe pain. ice/Elevation of left knee. Keep left knee on pillows and elevated. nutritional support with multivitamin and supplements (ensure) physical therapy ordered Code(s): S89.92XA - UNSPECIFIED INJURY OF LEFT LOWER LEG, INITIAL ENCOUNTER (3) Fever Assessment/Plan: septic workup initiated lactic acid: within normal limits blood and urine cultures, sent and pending UA, mild UTI, start on ceftriaxone 1 gram chest xray: no acute pathology monitor fever curve. had low grade 100.5f this afternoon on NS @ 50cc/hr for mild hypotension Code(s): R50.9 - FEVER, UNSPECIFIED (4) Urinary tract infection Assessment/Plan: UA with evidence of UTI, +1 leuks and + bacteria per ID, can start on ceftriaxone 1 gram and monitor (patient with pcn allergy) started on IVF 50cc x 24 hours UC pending Code(s): N39.0 - URINARY TRACT INFECTION, SITE NOT SPECIFIED (5) DVT prophylaxis Assessment/Plan: heparin bid for prolonged immobility physical therapy Code(s): Z29.9 - ENCOUNTER FOR PROPHYLACTIC MEASURES, UNSPECIFIED Visit type - Emergency Visit Emergency Visit: Yes ED Registration Date: 07/21/20 Care time: The patient presented to the Emergency Department on the above date and was hospitalized for further evaluation of their emergent condition. - New Patient This patient is new to me today: No - Critical Care Critical Care patient: No - Discharge Referral Referred to [facility] Med P.C.: No
[2020-07-23] MEDS ORDERED: KETOROLAC TROMETHAMINE 10 MG TABLET PO PRN (11:25)
[2020-07-23 13:22] LABS: BF WBC & OTHER NUCLEATED CELLS 71683 /mm3
--- NOTE | 2020-07-23 13:27 | PN ---
Progress Note, Physician History of Present Illness: patient spiked a fever fluid cx results of bot time noted no organism noted on 1st specimen will see what second specimen show - Current Medication List Current Medications: Active Medications Acetaminophen (Tylenol -) 650 mg PO Q6H PRN PRN Reason: FEVER Last Admin: 07/23/20 02:15 Dose: 650 mg Documented by: Diphenhydramine HCl (Benadryl -) 25 mg PO Q6H PRN PRN Reason: FOR ITCHING Ceftriaxone Sodium 1 gm/ (Dextrose) 50 mls @ 200 mls/hr IVPB DAILY PRIMO; Protocol Last Admin: 07/23/20 09:58 Dose: 200 mls/hr Documented by: Sodium Chloride (Normal Saline -) 1,000 mls @ 50 mls/hr IV ASDIR PRIMO Stop: 07/24/20 10:43 Last Admin: 07/23/20 11:10 Dose: 50 mls/hr Documented by: Ketorolac Tromethamine (Toradol) 10 mg PO Q6HPO PRN PRN Reason: PAIN LEVEL 7 - 10 Stop: 07/28/20 11:59 Multivitamins/Minerals/Vitamin C (Tab-A-Vit -) 1 tab PO DAILY PRIMO Last Admin: 07/23/20 09:58 Dose: 1 tab Documented by: - Objective Vital Signs: Vital Signs Temperature 98.3 F 07/23/20 09:50 Pulse Rate 109 H 07/23/20 09:50 Respiratory Rate 18 07/23/20 09:50 Blood Pressure 97/66 07/23/20 09:50 O2 Sat by Pulse Oximetry (%) 99 07/23/20 09:50 Constitutional: Yes: Calm, Mild Distress Cardiovascular: Yes: S1, S2 Respiratory: Yes: Regular, CTA Bilaterally Gastrointestinal: Yes: Normal Bowel Sounds, Soft Musculoskeletal: Yes: WNL Extremities: Yes: Other Neurological: Yes: Alert, Oriented Psychiatric: Yes: Alert, Oriented Labs: CBC, BMP 07/23/20 07:29 07/23/20 07:29 INR, PTT INR 1.36 (0.82-1.09) H 07/21/20 13:00 Assessment/Plan Problem List - Problems (1) Ulcerative colitis Code(s): K51.90 - ULCERATIVE COLITIS, UNSPECIFIED, WITHOUT COMPLICATIONS (2) Left knee injury Code(s): S89.92XA - UNSPECIFIED INJURY OF LEFT LOWER LEG, INITIAL ENCOUNTER uti patient started on ceftriaxone monitor improving monitor fevers close watch await for repeat cx and identification if anything grows monitor crp
[2020-07-23 14:03] LABS: BODY FLUID MONOCYTE 4 %; CRYSTALS,SYNOVIAL FLUID NEGATIVE
[2020-07-23] MEDS: LIDOCAINE 5% TOPICAL PATCH TP SCH (17:24)
--- NOTE | 2020-07-23 19:33 | CONSULT ---
Consult Consult Specialty:: Rheumatology - History of Present Illness History of Present Illness: 30 year old female with PMHx of ulcerative colitis on Remicade and 5MP, admitted with acute pain and swelling in the left knee and fever. HPI. On 07/15/20 the patient experienced crepitus in the left knee when standing up. Later on that day she developed progressive swelling of the same joint. On 07/20/20 she had fever of 101.Since then she has had progressive pain and swelling of the left knee. She denies other joint involvement and otherwise she is asymptomatic An MRI () was reports with partial quadriceps tear, no meniscus tear and otherwise normal examination. She was admitted to the hospital on that day. On 07/21/20 the T. max was 100.5, on 07/22/20: 100 and today 103.1. Laboratory work-up revealed a CBC with a WBC on admission of 14.3 and today 10.9. SMA-7 and liver function tests in normal range. Urinalysis with LE1+, blood 1+ and protein 1+. ESR 21 and CRP 12 (N<0.3). Synovial fluid: 07/21/20: WBC 53820, N:86%, L: 1%, M: 12:, histiocytes 10%. Culture aerobic and anaerobic were negative. 07/23/20: WBC 83176, N:95%, L: 1% and Monocytes 4%. Gram stain was negative. Crystal analysis in both samples was negative. CXR was negative. Ulcerative colitis. Diagnosed in 2007. She has been treated with 6MP since 2009 and Remicade since 2014 with good control. The disease is in remission. - History Source History Provided By: Patient, Medical Record - Past Medical History ...LMP: 07/18/20 ...: No - Smoking History Smoking history: Never smoked Home Medications - Allergies Allergies/Adverse Reactions: Allergies Allergy/AdvReac Type Severity Reaction Status Date / Time codeine Allergy Verified 07/20/20 22:18 piperacillin [From Zosyn] Allergy Verified 07/21/20 21:41 tazobactam [From Zosyn] Allergy Verified 07/21/20 21:41 - Home Medications Home Medications: Ambulatory Orders Remicade Infusion - 07/21/20 Levonorgestrel-Ethin Estradiol [Vienva-28 Tablet] 1 tablet PO DAILY 07/23/20 Mercaptopurine [Purinethol -] 25 mg PO DAILY 07/23/20 Mesalamine [Mesalamine ER] 12 cap PO DAILY 07/23/20 Review of Systems - Review of Systems Constitutional: reports: No Symptoms Eyes: reports: No Symptoms HENT: reports: No Symptoms Cardiovascular: reports: No Symptoms Respiratory: reports: No Symptoms Gastrointestinal: reports: No Symptoms Musculoskeletal: reports: Other (See HPI) Physical Exam Vital Signs: Vital Signs Temperature 98.1 F 07/23/20 18:30 Pulse Rate 100 H 07/23/20 14:16 Respiratory Rate 18 07/23/20 14:16 Blood Pressure 103/61 07/23/20 14:16 O2 Sat by Pulse Oximetry (%) 99 07/23/20 09:50 Constitutional: Yes: Moderate Distress Eyes: Yes: WNL HENT: Yes: WNL Neck: Yes: WNL Cardiovascular: Yes: WNL Respiratory: Yes: WNL Gastrointestinal: Yes: WNL Musculoskeletal: Yes: Other (Tenderness and swelling in the left knee.) Labs: CBC, BMP 07/23/20 07:29 07/23/20 07:29 Laboratory Tests 07/21/20 07/21/20 07/21/20 12:30 12:30 13:00 Random Glucose Calcium Magnesium Total Bilirubin AST ALT Alkaline Phosphatase C-Reactive Protein 12.0 H Total Protein Albumin Urine Appearance Urine pH Ur Specific [place] Urine Protein Urine Glucose (UA) Urine Ketones Urine Blood Urine Nitrite Urine Bilirubin Urine Urobilinogen Ur Leukocyte Esterase Urine WBC (Auto) Urine RBC (Auto) Urine Casts (Auto) U Epithel Cells (Auto) Urine Bacteria (Auto) Fluid WBC 47805 Fluid RBC 3337 Fluid Neutrophils 86 Fluid Lymphocytes 1 Pleural Monocytes 2 Pleural Histocytes 10 Synovial Crystals Negative 07/23/20 07/23/20 07/23/20 03:30 07:29 11:30 Random Glucose 94 Calcium 8.9 Magnesium 2.4 Total Bilirubin 1.4 H AST 5 L ALT 10 L Alkaline Phosphatase 52 C-Reactive Protein Total Protein 7.0 Albumin 3.0 L Urine Appearance Cloudy Urine pH 5.5 Ur Specific [place] 1.023 Urine Protein 1+ H Urine Glucose (UA) Negative Urine Ketones Trace H Urine Blood 1+ H Urine Nitrite Negative Urine Bilirubin Negative Urine Urobilinogen 0.2 Ur Leukocyte Esterase 1+ H Urine WBC (Auto) 154 Urine RBC (Auto) 34 Urine Casts (Auto) 12 U Epithel Cells (Auto) >36 Urine Bacteria (Auto) 33 Fluid WBC 25415 Fluid RBC 872604 Fluid Neutrophils 95 Fluid Lymphocytes 1 Pleural Monocytes 4 Pleural Histocytes Synovial Crystals Negative Problem List - Problems (1) Effusion, left knee Assessment/Plan: Monoarthritis of the left knee with progressive leukocyte count in synovial fluid, fever and negative synovial fluid culture (aerobic and anaerobic). MRI of the knee essentially normal. Patient is immunosuppressed (on Remicade and 6MP) for treatment of ulcerative colitis. Etiology to be determined. It is unlikely to be related to arthropathy of ulcerative colitis. I will discus scase with Ortho and Id. The patient is on Cephtriaxone. PROCEDURE. Under aspetic conditions I aspirated the left knee, obtained 20 ml of opaque slightly bloody fluid (results discussed in HPI). Lyme antibody (IgM and IgG) requested. Code(s): M25.462 - EFFUSION, LEFT KNEE
[2020-07-23] MEDS: HEPARIN NA (PORCINE) 5,000 UNITS/ML 1ML VIAL SQ SCH (21:45)
[2020-07-23] MEDS: LIDOCAINE PATCH REMOVAL MC SCH (21:45)
[2020-07-24] MEDS: ACETAMINOPHEN 325 MG TABLET (FP) PO PRN ×2 (02:20→21:23)
[2020-07-24] MEDS: SODIUM CHLORIDE 1,000 ML IV SCH (06:35)
[2020-07-24 08:21] LABS: BASO % 0.6 % (0-2.0); EOS % 1.1 % (0-4.5); HEMATOCRIT 32.3 % (32.4-45.2); HEMOGLOBIN 10.9 GM/dL (10.7-15.3); MCH 30.2 pg (25.7-33.7); MCHC 33.9 g/dl (32.0-36.0); MEAN CELL VOLUME 89.1 fl (80-96); MONO % 10.6 % (3.8-10.2); NEUT % 58.7 % (42.8-82.8); PLATELET COUNT 313 K/MM3 (134-434); RBC 3.62 M/mm3 (3.60-5.2); RDW 13.1 % (11.6-15.6); WHITE BLOOD COUNT 9.8 K/mm3 (4.0-10.0)
[2020-07-24 08:24] LABS: INR 1.28 (0.83-1.09); PROTHROMBIN TIME (PATIENT) 15.1 SEC (9.7-13.0)
--- NOTE | 2020-07-24 08:24 | PN ---
Progress Note (short form) - Note Progress Note: ORTHOPEDIC SURGERY PROGRESS NOTE Department of Orthopedic Surgery SUBJECTIVE No acute events overnight. No complaints currently. Denies chest pain, shortness of breath, or calf pain. No nausea or vomiting. Tolerating oral intake. Did have a fever overnight. Pain controlled. PHYSICAL EXAMINATION Constitutional: Alert and oriented to person, place, and time. Appears well- developed and well-nourished. No acute distress, appropriate mood and affect. Left Lower Extremity: Skin warm, dry, and intact; no lesions, rashes or ulcers noted. There is an effusion present. Muscle mass otherwise equal and symmetric to contralateral side. No atrophy noted. No masses noted. Patient has medial joint line tenderness; nontender throughout rest of extremity. No cords or calf tenderness No significant calf/ankle edema. Patient has LROM, however has no pain with ROM through arc of 0-90 degrees of flexion actively and passively. Full passive and active ROM of the ankle and foot and toes, free from pain. Joints stable with no pathologic laxity. EHL/TA/GS motor intact; SILT distally; 2+ DP pulses; Cap refill brisk. Tone and reflexes normal. DVT Exam: No evidence of DVT seen on physical exam; No cords or calf tenderness; No significant calf/ankle edema. Intake & Output 07/22/20 07/23/20 07/24/20 23:59 23:59 23:59 Intake Total 520 1130 350 Balance 520 1130 350 Intake: IV 600 350 Normal Saline - 1,000 ml 600 350 @ 50 mls/hr IV [facility] Rx#:[id number] IVPB 50 Oral 520 480 Other: Voiding Method Toilet Toilet # Unmeasured Voids Void 2 2 Bowel Movement No Weight 116 lb Height 5 ft 8 in Body Mass Index (BMI) 17.6 Active Medications Generic Name Dose Route Start Last Admin Trade Name Freq PRN Reason Stop Dose Admin Acetaminophen 650 mg 07/21/20 00:59 07/24/20 02:20 Tylenol - PO 650 mg Q6H PRN Administration FEVER Diphenhydramine HCl 25 mg 07/23/20 11:15 Benadryl - PO Q6H PRN FOR ITCHING Heparin Sodium (Porcine) 5,000 unit 07/23/20 22:00 07/23/20 21:45 Heparin - SQ 5,000 unit BID [facility] Administration Ceftriaxone Sodium 1 gm/ 50 mls @ 200 mls/hr 07/23/20 10:00 07/23/20 09:58 Dextrose IVPB 200 mls/hr DAILY [facility] Administration Protocol Sodium Chloride 1,000 mls @ 50 mls/hr 07/23/20 10:45 07/24/20 06:35 Normal Saline - IV 07/24/20 10:43 50 mls/hr [facility] Administration Ketorolac Tromethamine 10 mg 07/23/20 11:25 Toradol PO 07/28/20 11:59 Q6HPO PRN PAIN LEVEL 7 - 10 Lidocaine 1 patch 07/23/20 16:45 07/23/20 17:24 Lidoderm Patch - TP 1 patch DAILY [facility] Administration Mercaptopurine 25 mg 07/24/20 10:00 Purinethol - PO DAILY [facility] Miscellaneous 1 each 07/23/20 22:00 07/23/20 21:45 Lidoderm Patch Removal MC 1 each DAILY@2200 [facility] Administration Multivitamins/Minerals/Vitamin C 1 tab 07/23/20 10:00 07/23/20 09:58 Tab-A-Vit - PO 1 tab DAILY [facility] Administration Non-Formulary Medication 1 tablet 07/24/20 10:00 Levonorgestrel-Ethin Estradiol [Vienva-28 Tablet] PO DAILY [facility] (Mesalamine [ 12 cap 07/24/20 10:00 Mesalamine Er] 0.375 PO G Cap) DAILY [facility] Vital Signs (last) Temp Pulse Resp BP Pulse Ox 99.7 F H 96 H 18 100/61 98 07/24/20 06:00 07/24/20 06:00 07/24/20 06:00 07/24/20 06:00 07/24/20 06:00 Laboratory (coagulation) PT with INR 15.1 SEC (10.2-13.0) H 07/21/20 13:00 MRI Left Knee: Large effusion, no meniscus or ligamentous injuries. No fractures, bony lesions, or significant arthrosis seen. Quadriceps partial tear. Covid Test: Not Detected ASSESSMENT AND PLAN Ms. Ramirez is a 30 year old female presenting with left knee pain and knee effusion with increased ESR, increased WBC, and low grade fevers. We have reviewed the imaging and clinical findings in detail, as well as their potential implications. 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 - FU synovial fluid culture results; (Currently NGTD); gram stain shows no organisms - FU Blood culture (Currently NGTD) - FU Rheumatology recs - FU Infectious disease recs - Pain control: Transition to oral pain medications, minimize narcotic use - DVT prophylaxis - Ice/Elevation of left knee - Elevate HOB, encourage oral intake - Appreciate medical management (Nutrition optimization, decubitus precautions heel/sacrum) - WBAT LLE - Continue Medical management
--- NOTE | 2020-07-24 08:45 | PN ---
Progress Note, Physician Chief Complaint: Seen and examined in bed with ice pack on left knee. States that knee is less swollen than yesterday. Became dizzy when ambulating to bathroom this am- resolved when sat down. History of Present Illness: Patient is a 30 year-old female medical condition ulcerative colitis, on immunosuppressant therapy. She initially presented to [facility] forl eft knee pain and a fever of 101f. Patient reported that she injured her knee when she twisted it approximately 4 days prior. In ED, pt received zosyn and had allergic reaction, benadryl IV given. Patient seen by Ortho, synovial fluid drained at bedside, gram stain pending, crystals negative. Dr Mendez (rheumotologist) evaluated patient at the bedside and knee was aspirated. - Current Medication List Current Medications: Active Medications Acetaminophen (Tylenol -) 650 mg PO Q6H PRN PRN Reason: FEVER Last Admin: 07/24/20 02:20 Dose: 650 mg Documented by: Diphenhydramine HCl (Benadryl -) 25 mg PO Q6H PRN PRN Reason: FOR ITCHING Heparin Sodium (Porcine) (Heparin -) 5,000 unit SQ BID [facility] Last Admin: 07/23/20 21:45 Dose: 5,000 unit Documented by: Ceftriaxone Sodium 1 gm/ (Dextrose) 50 mls @ 200 mls/hr IVPB DAILY [facility]; Protocol Last Admin: 07/23/20 09:58 Dose: 200 mls/hr Documented by: Sodium Chloride (Normal Saline -) 1,000 mls @ 50 mls/hr IV [facility] Stop: 07/24/20 10:43 Last Admin: 07/24/20 06:35 Dose: 50 mls/hr Documented by: Ketorolac Tromethamine (Toradol) 10 mg PO Q6HPO PRN PRN Reason: PAIN LEVEL 7 - 10 Stop: 07/28/20 11:59 Lidocaine (Lidoderm Patch -) 1 patch TP DAILY [facility] Last Admin: 07/23/20 17:24 Dose: 1 patch Documented by: Mercaptopurine (Purinethol -) 25 mg PO DAILY [facility] Miscellaneous (Lidoderm Patch Removal) 1 each MC DAILY@2200 [facility] Last Admin: 07/23/20 21:45 Dose: 1 each Documented by: Multivitamins/Minerals/Vitamin C (Tab-A-Vit -) 1 tab PO DAILY [facility] Last Admin: 07/23/20 09:58 Dose: 1 tab Documented by: Non-Formulary Medication (Levonorgestrel-Ethin Estradiol [Vienva-28 Tablet]) 1 tablet PO DAILY [facility] (Mesalamine [ Mesalamine Er] 0.375 G Cap) 12 cap PO DAILY [facility] - Objective Vital Signs: Vital Signs Temperature 99.7 F H 07/24/20 06:00 Pulse Rate 96 H 07/24/20 06:00 Respiratory Rate 18 07/24/20 06:00 Blood Pressure 100/61 07/24/20 06:00 O2 Sat by Pulse Oximetry (%) 98 07/24/20 06:00 Constitutional: Yes: Well Nourished, No Distress, Calm Eyes: Yes: WNL, Conjunctiva Clear HENT: Yes: WNL, Atraumatic, Normocephalic Cardiovascular: Yes: WNL, Regular Rate and Rhythm Respiratory: Yes: WNL, Regular, CTA Bilaterally Gastrointestinal: Yes: WNL, Normal Bowel Sounds ...Rectal Exam: Yes: Deferred Genitourinary: Yes: WNL Breast(s): Yes: WNL Musculoskeletal: Yes: Joint Stiffness, Joint Swelling (to left knee) Extremities: Yes: WNL Edema: No Edema: LLE: Trace Peripheral Pulses WNL: Yes Peripheral Pulses: Left Radial: 2+, Right Radial: 2+, Left Doralis Pedis: 2+, Right Dorsalis Pedis: 2+, Left Femoral: 2+, Right Femoral: 2+ Integumentary: Yes: WNL Neurological: Yes: WNL, Alert, Oriented ...Motor Strength: WNL Labs: CBC, BMP 07/24/20 07:05 INR, PTT INR 1.28 (0.83-1.09) H 07/24/20 07:05 - ....Imaging MRI: Report Reviewed (large intra-articular effusion with soft tissue swelling surrounding joint) Problem List - Problems (1) Prophylactic measure Assessment/Plan: FEN Fluids: adequate PO intake Electrolytes: monitor & replete as needed Nutrition: reg diet DVT moderate risk sq heparin Dispo Maintain as inpatient full code discharge planning Code(s): Z29.9 - ENCOUNTER FOR PROPHYLACTIC MEASURES, UNSPECIFIED (2) COVID-19 ruled out Assessment/Plan: negative pcr Code(s): Z03.818 - ENCNTR FOR OBS FOR SUSP EXPSR TO OTH BIOLG AGENTS RULED OUT (3) Fever Assessment/Plan: T 102 at 2am now afebrile c/t monitor Ucx/Bcx ngtd synovial fluid pending tick borne illness w/u in progress c/w abx ID following Code(s): R50.9 - FEVER, UNSPECIFIED (4) Left knee injury Assessment/Plan: left knee swelling/possible cellulitis vs septic joint. ESR 69, CRP 21 MRI of left ext: left knee MRI: large intra articular effusion with soft tissue swelling surrounding the knee joint. findings may be post traumatic with partial quad tendon tear underlying inflammatory/infectious process to be excluded. ortho following and patient s/p synovial fluid collection, seen by rheumatology and knee aspirated done, cultures pending ice/Elevation of left knee. nutritional support with multivitamin and supplements (ensure) c/w physical therapy Code(s): S89.92XA - UNSPECIFIED INJURY OF LEFT LOWER LEG, INITIAL ENCOUNTER (5) Ulcerative colitis Assessment/Plan: on Remicade infusions, last received on 07/13/20 and receives q 7 weeks. Follows with GI as an outpatient. no acute issues, continue home medications and monitor Code(s): K51.90 - ULCERATIVE COLITIS, UNSPECIFIED, WITHOUT COMPLICATIONS (6) Urinary tract infection Assessment/Plan: UA with evidence of UTI, +1 leuks and + bacteria Ucx ngtd c/w abx Code(s): N39.0 - URINARY TRACT INFECTION, SITE NOT SPECIFIED Visit type - Emergency Visit Emergency Visit: Yes ED Registration Date: 07/21/20 Care time: The patient presented to the Emergency Department on the above date and was hospitalized for further evaluation of their emergent condition. - New Patient This patient is new to me today: Yes Date on this admission: 07/24/20 - Critical Care Critical Care patient: No - Discharge Referral Referred to [facility] Med P.C.: No
[2020-07-24 09:06] LABS: ALBUMIN 2.7 g/dl (3.4-5.0); BILIRUBIN,TOTAL 1.4 mg/dL (0.2-1); BLOOD UREA NITROGEN 11.9 mg/dL (7-18); CALCIUM 8.3 mg/dL (8.5-10.1); CREATININE 0.6 mg/dL (0.55-1.3); MAGNESIUM 2.2 mg/dL (1.8-2.4); POTASSIUM 4.2 mmol/L (3.5-5.1); TOT PROT 6.4 g/dl (6.4-8.2)
[2020-07-24] MEDS ORDERED: PT OWN MED DRAWER 7, Y5N ONE (09:54)
[2020-07-24] MEDS ORDERED: cefTRIAXone SODIUM 1 GM VIAL ONE (09:54)
[2020-07-24] MEDS ORDERED: DEXTROSE 5%-WATER - 50 ML IVPB ONE (09:54)
[2020-07-24] MEDS: HEPARIN NA (PORCINE) 5,000 UNITS/ML 1ML VIAL SQ SCH ×2 (09:58→21:14)
[2020-07-24] MEDS: CEFTRIAXONE 1 GM in DEXTROSE 5%-WATER - 50 ML IVPB SCH (09:59)
[2020-07-24] MEDS: LIDOCAINE 5% TOPICAL PATCH TP SCH (10:00)
[2020-07-24] MEDS ORDERED: PATIENT'S OWN MEDICATION (NON-FORMULARY) (Levonorgestrel-Ethin Estradiol [Vienva-28 Tablet PO SCH (10:00)
[2020-07-24] MEDS: MERCAPTOPURINE 50 MG TABLET PO SCH (10:02)
[2020-07-24] MEDS: MULTIVITAMINS (DAILY MVI) TABLET (FP) PO SCH (10:03)
[2020-07-24] MEDS: MESALAMINE 0.375 GM PO SCH (10:03)
[2020-07-24 10:43] LABS: ERYTHROCYTE SEDIMENTATION RATE 69 mm/hr (0-20)
--- NOTE | 2020-07-24 13:15 | PN ---
Progress Note, Physician History of Present Illness: stable spiked a fever once remains stable - Current Medication List Current Medications: Active Medications Acetaminophen (Tylenol -) 650 mg PO Q6H PRN PRN Reason: FEVER Last Admin: 07/24/20 02:20 Dose: 650 mg Documented by: Diphenhydramine HCl (Benadryl -) 25 mg PO Q6H PRN PRN Reason: FOR ITCHING Heparin Sodium (Porcine) (Heparin -) 5,000 unit SQ BID [facility] Last Admin: 07/24/20 09:58 Dose: 5,000 unit Documented by: Ceftriaxone Sodium 1 gm/ (Dextrose) 50 mls @ 200 mls/hr IVPB DAILY [facility]; Protocol Last Admin: 07/24/20 09:59 Dose: 200 mls/hr Documented by: Ketorolac Tromethamine (Toradol) 10 mg PO Q6HPO PRN PRN Reason: PAIN LEVEL 7 - 10 Stop: 07/28/20 11:59 Lidocaine (Lidoderm Patch -) 1 patch TP DAILY [facility] Last Admin: 07/24/20 10:00 Dose: 1 patch Documented by: Mercaptopurine (Purinethol -) 25 mg PO DAILY [facility] Last Admin: 07/24/20 10:02 Dose: 25 mg Documented by: Miscellaneous (Lidoderm Patch Removal) 1 each MC DAILY@2200 [facility] Last Admin: 07/23/20 21:45 Dose: 1 each Documented by: Multivitamins/Minerals/Vitamin C (Tab-A-Vit -) 1 tab PO DAILY [facility] Last Admin: 07/24/20 10:03 Dose: 1 tab Documented by: Non-Formulary Medication (Levonorgestrel-Ethin Estradiol [Vienva-28 Tablet]) 1 tablet PO DAILY [facility] (Mesalamine [ Mesalamine Er] 0.375 G Cap) 12 cap PO DAILY [facility] Last Admin: 07/24/20 10:03 Dose: 12 cap Documented by: - Objective Vital Signs: Vital Signs Temperature 98.4 F 07/24/20 10:55 Pulse Rate 101 H 07/24/20 10:55 Respiratory Rate 18 07/24/20 10:55 Blood Pressure 94/53 L 07/24/20 10:55 O2 Sat by Pulse Oximetry (%) 100 07/24/20 10:55 Constitutional: Yes: No Distress, Calm Cardiovascular: Yes: S1, S2 Respiratory: Yes: Regular, CTA Bilaterally Gastrointestinal: Yes: Normal Bowel Sounds, Soft Musculoskeletal: Yes: WNL Extremities: Yes: Other Neurological: Yes: Alert, Oriented Psychiatric: Yes: Alert, Oriented Labs: CBC, BMP 07/24/20 07:05 07/24/20 07:05 INR, PTT INR 1.28 (0.83-1.09) H 07/24/20 07:05 Assessment/Plan Problem List - Problems (1) Ulcerative colitis Code(s): K51.90 - ULCERATIVE COLITIS, UNSPECIFIED, WITHOUT COMPLICATIONS (2) Left knee injury Code(s): S89.92XA - UNSPECIFIED INJURY OF LEFT LOWER LEG, INITIAL ENCOUNTER uti patient started on ceftriaxone monitor improving monitor fevers close watch await for cx results of the fluid monitor crp
[2020-07-24] MEDS: LIDOCAINE PATCH REMOVAL MC SCH (21:14)
[2020-07-25 07:44] LABS: INR 1.19 (0.83-1.09); PROTHROMBIN TIME (PATIENT) 14.1 SEC (9.7-13.0)
--- NOTE | 2020-07-25 07:44 | PN ---
Progress Note, Physician Chief Complaint: Seen and examined in bed . Swelling and pain improved from yesterday. Zoom call scheduled at pts request with Dr. Ramirez-PCP, Dr Gonzalez, and Dr Carmona (GI from [facility]) to discuss POC. Spiked temp again last night to 101. All cx remain nega History of Present Illness: Patient is a 30 year-old female medical condition ulcerative colitis, on immunosuppressant therapy. She initially presented to [facility] forl eft knee pain and a fever of 101f. Patient reported that she injured her knee when she twisted it approximately 4 days prior. In ED, pt received zosyn and had allergic reaction, benadryl IV given. Patient seen by Ortho, synovial fluid drained at bedside, gram stain pending, crystals negative. Dr Mendez (rheumotologist) evaluated patient at the bedside and knee was aspirated. - Current Medication List Current Medications: Active Medications Acetaminophen (Tylenol -) 650 mg PO Q6H PRN PRN Reason: FEVER Last Admin: 07/24/20 21:23 Dose: 650 mg Documented by: Diphenhydramine HCl (Benadryl -) 25 mg PO Q6H PRN PRN Reason: FOR ITCHING Heparin Sodium (Porcine) (Heparin -) 5,000 unit SQ BID [facility] Last Admin: 07/24/20 21:14 Dose: 5,000 unit Documented by: Ceftriaxone Sodium 1 gm/ (Dextrose) 50 mls @ 200 mls/hr IVPB DAILY [facility]; Protocol Last Admin: 07/24/20 09:59 Dose: 200 mls/hr Documented by: Ketorolac Tromethamine (Toradol) 10 mg PO Q6HPO PRN PRN Reason: PAIN LEVEL 7 - 10 Stop: 07/28/20 11:59 Lidocaine (Lidoderm Patch -) 1 patch TP DAILY [facility] Last Admin: 07/24/20 10:00 Dose: 1 patch Documented by: Mercaptopurine (Purinethol -) 25 mg PO DAILY [facility] Last Admin: 07/24/20 10:02 Dose: 25 mg Documented by: Miscellaneous (Lidoderm Patch Removal) 1 each MC DAILY@2200 [facility] Last Admin: 07/24/20 21:14 Dose: 1 each Documented by: Multivitamins/Minerals/Vitamin C (Tab-A-Vit -) 1 tab PO DAILY [facility] Last Admin: 07/24/20 10:03 Dose: 1 tab Documented by: Non-Formulary Medication (Levonorgestrel-Ethin Estradiol [Vienva-28 Tablet]) 1 tablet PO DAILY [facility] (Mesalamine [ Mesalamine Er] 0.375 G Cap) 12 cap PO DAILY [facility] Last Admin: 07/24/20 10:03 Dose: 12 cap Documented by: - Objective Vital Signs: Vital Signs Temperature 98.8 F 07/25/20 05:50 Pulse Rate 79 07/25/20 05:50 Respiratory Rate 18 07/25/20 05:50 Blood Pressure 104/59 L 07/25/20 05:50 O2 Sat by Pulse Oximetry (%) 100 07/25/20 05:50 Additional Findings/Remarks: Constitutional: Yes: Well Nourished, No Distress, Calm Eyes: Yes: WNL, Conjunctiva Clear HENT: Yes: WNL, Atraumatic, Normocephalic Cardiovascular: Yes: WNL, Regular Rate and Rhythm Respiratory: Yes: WNL, Regular, CTA Bilaterally Gastrointestinal: Yes: WNL, Normal Bowel Sounds ...Rectal Exam: Yes: Deferred Genitourinary: Yes: WNL Breast(s): Yes: WNL Musculoskeletal: Yes: Joint Stiffness, Joint Swelling (to left knee) Extremities: Yes: WNL Edema: No Edema: LLE: Trace Peripheral Pulses WNL: Yes Peripheral Pulses: Left Radial: 2+, Right Radial: 2+, Left Doralis Pedis: 2+, Right Dorsalis Pedis: 2+, Left Femoral: 2+, Right Femoral: 2+ Integumentary: Yes: WNL Neurological: Yes: WNL, Alert, Oriented ...Motor Strength: WNL Labs: INR, PTT INR 1.19 (0.83-1.09) H 07/25/20 07:00 - ....Imaging Cat Scan: Pending (A/P) Problem List - Problems (1) Prophylactic measure Assessment/Plan: FEN Fluids: adequate PO intake Electrolytes: monitor & replete as needed Nutrition: reg diet DVT moderate risk sq heparin Dispo Maintain as inpatient full code discharge planning Code(s): Z29.9 - ENCOUNTER FOR PROPHYLACTIC MEASURES, UNSPECIFIED (2) COVID-19 ruled out Assessment/Plan: negative pcr Code(s): Z03.818 - ENCNTR FOR OBS FOR SUSP EXPSR TO OTH BIOLG AGENTS RULED OUT (3) Fever Assessment/Plan: T 101 at 1am now afebrile c/t monitor Ucx/Bcx ngtd synovial fluid ngtd tick borne illness w/u in progress-lyme pending c/w abx ID following Code(s): R50.9 - FEVER, UNSPECIFIED (4) Left knee injury Assessment/Plan: left knee swelling/possible cellulitis vs septic joint however unlikely given no growth in cx ESR 95, CRP 15 MRI of left ext: left knee MRI: large intra articular effusion with soft tissue swelling surrounding the knee joint. findings may be post traumatic with partial quad tendon tear underlying inflammatory/infectious process to be excluded. ortho following and patient s/p synovial fluid collection, seen by rheumatology and knee aspirated done, cultures pending ice/Elevation of left knee. nutritional support with multivitamin and supplements (ensure) c/w physical therapy Code(s): S89.92XA - UNSPECIFIED INJURY OF LEFT LOWER LEG, INITIAL ENCOUNTER (5) Ulcerative colitis Assessment/Plan: on Remicade infusions, last received on 07/13/20 and receives q 7 weeks. Follows with GI as an outpatient-Dr Carmona had zoom call with care team possible extraintestional UC flair manifesting in joint will r/o other etiologies such as tick borne illess, prior to giving steroids CT A/P pending Code(s): K51.90 - ULCERATIVE COLITIS, UNSPECIFIED, WITHOUT COMPLICATIONS (6) Urinary tract infection Assessment/Plan: UA with evidence of UTI, +1 leuks and + bacteria Ucx ngtd c/w abx Code(s): N39.0 - URINARY TRACT INFECTION, SITE NOT SPECIFIED Visit type - Emergency Visit Emergency Visit: Yes ED Registration Date: 07/21/20 Care time: The patient presented to the Emergency Department on the above date and was hospitalized for further evaluation of their emergent condition. - New Patient This patient is new to me today: No - Critical Care Critical Care patient: No - Discharge Referral Referred to [facility] Med P.C.: No
[2020-07-25 07:47] LABS: BASO % 0.5 % (0-2.0); EOS % 1.4 % (0-4.5); HEMATOCRIT 30.4 % (32.4-45.2); HEMOGLOBIN 10.2 GM/dL (10.7-15.3); LYMPH % 27.5 % (8-40); MCH 29.9 pg (25.7-33.7); MCHC 33.7 g/dl (32.0-36.0); MEAN CELL VOLUME 88.9 fl (80-96); MEAN PLT VOLUME 8.6 fl (7.5-11.1); MONO % 8.2 % (3.8-10.2); NEUT % 62.4 % (42.8-82.8); PLATELET COUNT 331 K/MM3 (134-434); RBC 3.43 M/mm3 (3.60-5.2); RDW 13.2 % (11.6-15.6); WHITE BLOOD COUNT 9.2 K/mm3 (4.0-10.0)
[2020-07-25 08:00] LABS: ALBUMIN 2.7 g/dl (3.4-5.0); BILIRUBIN,TOTAL 0.7 mg/dL (0.2-1); BLOOD UREA NITROGEN 9.6 mg/dL (7-18); CALCIUM 8.3 mg/dL (8.5-10.1); CREATININE 0.6 mg/dL (0.55-1.3); MAGNESIUM 2.2 mg/dL (1.8-2.4); POTASSIUM 4.2 mmol/L (3.5-5.1); TOT PROT 6.5 g/dl (6.4-8.2)
--- NOTE | 2020-07-25 08:49 | PN ---
Progress Note, Physician History of Present Illness: stable spiked a fever once remains stable no growth in fluid noted - Current Medication List Current Medications: Active Medications Acetaminophen (Tylenol -) 650 mg PO Q6H PRN PRN Reason: FEVER Last Admin: 07/24/20 21:23 Dose: 650 mg Documented by: Diphenhydramine HCl (Benadryl -) 25 mg PO Q6H PRN PRN Reason: FOR ITCHING Heparin Sodium (Porcine) (Heparin -) 5,000 unit SQ BID [facility] Last Admin: 07/24/20 21:14 Dose: 5,000 unit Documented by: Ceftriaxone Sodium 1 gm/ (Dextrose) 50 mls @ 200 mls/hr IVPB DAILY [facility]; Protocol Last Admin: 07/24/20 09:59 Dose: 200 mls/hr Documented by: Ketorolac Tromethamine (Toradol) 10 mg PO Q6HPO PRN PRN Reason: PAIN LEVEL 7 - 10 Stop: 07/28/20 11:59 Lidocaine (Lidoderm Patch -) 1 patch TP DAILY [facility] Last Admin: 07/24/20 10:00 Dose: 1 patch Documented by: Mercaptopurine (Purinethol -) 25 mg PO DAILY [facility] Last Admin: 07/24/20 10:02 Dose: 25 mg Documented by: Miscellaneous (Lidoderm Patch Removal) 1 each [facility] DAILY@2200 [facility] Last Admin: 07/24/20 21:14 Dose: 1 each Documented by: Multivitamins/Minerals/Vitamin C (Tab-A-Vit -) 1 tab PO DAILY [facility] Last Admin: 07/24/20 10:03 Dose: 1 tab Documented by: Non-Formulary Medication (Levonorgestrel-Ethin Estradiol [Vienva-28 Tablet]) 1 tablet PO DAILY [facility] (Mesalamine [ Mesalamine Er] 0.375 G Cap) 12 cap PO DAILY [facility] Last Admin: 07/24/20 10:03 Dose: 12 cap Documented by: - Objective Vital Signs: Vital Signs Temperature 98.8 F 07/25/20 05:50 Pulse Rate 79 07/25/20 05:50 Respiratory Rate 18 07/25/20 05:50 Blood Pressure 104/59 L 07/25/20 05:50 O2 Sat by Pulse Oximetry (%) 100 07/25/20 05:50 Constitutional: Yes: No Distress, Calm Cardiovascular: Yes: S1, S2 Respiratory: Yes: Regular, CTA Bilaterally Gastrointestinal: Yes: Normal Bowel Sounds, Soft Musculoskeletal: Yes: WNL Extremities: Yes: Other Neurological: Yes: Alert, Oriented Psychiatric: Yes: Alert Labs: CBC, BMP 07/25/20 07:00 07/25/20 07:00 INR, PTT INR 1.19 (0.83-1.09) H 07/25/20 07:00 Assessment/Plan Problem List - Problems (1) Ulcerative colitis Code(s): K51.90 - ULCERATIVE COLITIS, UNSPECIFIED, WITHOUT COMPLICATIONS (2) Left knee injury Code(s): S89.92XA - UNSPECIFIED INJURY OF LEFT LOWER LEG, INITIAL ENCOUNTER uti patient started on ceftriaxone monitor improving monitor fevers close watch no growth noted monitor crp
--- NOTE | 2020-07-25 08:52 | PN ---
Progress Note (short form) - Note Progress Note: ORTHOPEDIC SURGERY PROGRESS NOTE Department of Orthopedic Surgery SUBJECTIVE No acute events overnight. No complaints currently. Denies chest pain, shortness of breath, or calf pain. No nausea or vomiting. Tolerating oral intake. Did have a fever overnight. Pain controlled. PHYSICAL EXAMINATION Constitutional: Alert and oriented to person, place, and time. Appears well- developed and well-nourished. No acute distress, appropriate mood and affect. Left Lower Extremity: Skin warm, dry, and intact; no lesions, rashes or ulcers noted. There is an effusion present. Muscle mass otherwise equal and symmetric to contralateral side. No atrophy noted. No masses noted. Patient has medial joint line tenderness; nontender throughout rest of extremity. No cords or calf tenderness No significant calf/ankle edema. Patient has LROM, however has no pain with ROM through arc of 0-90 degrees of flexion actively and passively. Full passive and active ROM of the ankle and foot and toes, free from pain. Joints stable with no pathologic laxity. EHL/TA/GS motor intact; SILT distally; 2+ DP pulses; Cap refill brisk. Tone and reflexes normal. DVT Exam: No evidence of DVT seen on physical exam; No cords or calf tenderness; No significant calf/ankle edema. Intake & Output 07/23/20 07/24/20 07/25/20 23:59 23:59 23:59 Intake Total 1130 1320 240 Balance 1130 1320 240 Intake: IV 600 950 Normal Saline - 1,000 ml 600 950 @ 50 mls/hr IV [facility]IR [facility] Rx#:[id number] IVPB 50 50 Oral 480 320 240 Other: Voiding Method Toilet Toilet # Unmeasured Voids Void 2 3 Bowel Movement No Weight 116 lb Height 5 ft 8 in Body Mass Index (BMI) 17.6 Active Medications Generic Name Dose Route Start Last Admin Trade Name Freq PRN Reason Stop Dose Admin Acetaminophen 650 mg 07/21/20 00:59 07/24/20 21:23 Tylenol - PO 650 mg Q6H PRN Administration FEVER Diphenhydramine HCl 25 mg 07/23/20 11:15 Benadryl - PO Q6H PRN FOR ITCHING Heparin Sodium (Porcine) 5,000 unit 07/23/20 22:00 07/24/20 21:14 Heparin - SQ 5,000 unit BID [facility] Administration Ceftriaxone Sodium 1 gm/ 50 mls @ 200 mls/hr 07/23/20 10:00 07/24/20 09:59 Dextrose IVPB 200 mls/hr DAILY [facility] Administration Protocol Ketorolac Tromethamine 10 mg 07/23/20 11:25 Toradol PO 07/28/20 11:59 Q6HPO PRN PAIN LEVEL 7 - 10 Lidocaine 1 patch 07/23/20 16:45 07/24/20 10:00 Lidoderm Patch - TP 1 patch DAILY [facility] Administration Mercaptopurine 25 mg 07/24/20 10:00 07/24/20 10:02 Purinethol - PO 25 mg DAILY [facility] Administration Miscellaneous 1 each 07/23/20 22:00 07/24/20 21:14 Lidoderm Patch Removal MC 1 each DAILY@2200 [facility] Administration Multivitamins/Minerals/Vitamin C 1 tab 07/23/20 10:00 07/24/20 10:03 Tab-A-Vit - PO 1 tab DAILY [facility] Administration Non-Formulary Medication 1 tablet 07/24/20 10:00 Levonorgestrel-Ethin Estradiol [Vienva-28 Tablet] PO DAILY [facility] (Mesalamine [ 12 cap 07/24/20 10:00 07/24/20 10:03 Mesalamine Er] 0.375 PO 12 cap G Cap) DAILY [facility] Administration Vital Signs (last) Temp Pulse Resp BP Pulse Ox 98.8 F 79 18 104/59 L 100 07/25/20 05:50 07/25/20 05:50 07/25/20 05:50 07/25/20 05:50 07/25/20 05:50 Laboratory (coagulation) PT with INR 14.10 SEC (9.7-13.0) H 07/25/20 07:00 Laboratory 07/25/20 07:00 07/25/20 07:00 MRI Left Knee: Large effusion, no meniscus or ligamentous injuries. No fractures, bony lesions, or significant arthrosis seen. Quadriceps partial tear. Covid Test: Not Detected ASSESSMENT AND PLAN Ms. Ramirez is a 30 year old female presenting with left knee pain and knee effusion with decrease in CRP and decreased WBC, and one time 101 fever overnight. We have reviewed the imaging and clinical findings in detail, as well as their potential implications. 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 - FU synovial fluid culture results; (Currently NGTD); gram stain shows no organisms - FU Blood culture (Currently NGTD) - FU Rheumatology recs - FU Infectious disease recs - Pain control: Transition to oral pain medications, minimize narcotic use - DVT prophylaxis - Ice/Elevation of left knee - Elevate HOB, encourage oral intake - Appreciate medical management (Nutrition optimization, decubitus precautions heel/sacrum) - WBAT LLE - Continue Medical management
--- NOTE | 2020-07-25 08:54 | PN ---
Progress Note (short form) - Note Progress Note: ORTHOPEDIC SURGERY PROGRESS NOTE Department of Orthopedic Surgery SUBJECTIVE No acute events overnight. No complaints currently. Denies chest pain, shortness of breath, or calf pain. Patient has developed a non productive cough. She also admits to having diarrhea and frequency this am. No nausea or vomiting. Nilsa ating oral intake. Did have a fever overnight. Pain controlled. PHYSICAL EXAMINATION Constitutional: Alert and oriented to person, place, and time. Appears well- developed and well-nourished. No acute distress, appropriate mood and affect. Left Lower Extremity: Skin warm, dry, and intact; no lesions, rashes or ulcers noted. There is an effusion present. Muscle mass otherwise equal and symmetric to contralateral side. No atrophy noted. No masses noted. Patient has medial joint line tenderness; nontender throughout rest of extremity. No cords or calf tenderness No significant calf/ankle edema. Patient has LROM, however has no pain with ROM through arc of 0-80 degrees of flexion actively and passively. Full passive and active ROM of the ankle and foot and toes, free from pain. Joints stable with no pathologic laxity. EHL/TA/GS motor intact; SILT distally; 2+ DP pulses; Cap refill brisk. Tone and reflexes normal. DVT Exam: No evidence of DVT seen on physical exam; No cords or calf tenderness; No significant calf/ankle edema. Intake & Output 07/23/20 07/24/20 07/25/20 23:59 23:59 23:59 Intake Total 1130 1320 240 Balance 1130 1320 240 Intake: IV 600 950 Normal Saline - 1,000 ml 600 950 @ 50 mls/hr IV ASDIR [facility] Rx#:[id number] IVPB 50 50 Oral 480 320 240 Other: Voiding Method Toilet Toilet # Unmeasured Voids Void 2 3 Bowel Movement No Weight 116 lb Height 5 ft 8 in Body Mass Index (BMI) 17.6 Active Medications Generic Name Dose Route Start Last Admin Trade Name Freq PRN Reason Stop Dose Admin Acetaminophen 650 mg 07/21/20 00:59 07/24/20 21:23 Tylenol - PO 650 mg Q6H PRN Administration FEVER Diphenhydramine HCl 25 mg 07/23/20 11:15 Benadryl - PO Q6H PRN FOR ITCHING Heparin Sodium (Porcine) 5,000 unit 07/23/20 22:00 07/24/20 21:14 Heparin - SQ 5,000 unit BID [facility] Administration Ceftriaxone Sodium 1 gm/ 50 mls @ 200 mls/hr 07/23/20 10:00 07/24/20 09:59 Dextrose IVPB 200 mls/hr DAILY [facility] Administration Protocol Ketorolac Tromethamine 10 mg 07/23/20 11:25 Toradol PO 07/28/20 11:59 Q6HPO PRN PAIN LEVEL 7 - 10 Lidocaine 1 patch 07/23/20 16:45 07/24/20 10:00 Lidoderm Patch - TP 1 patch DAILY [facility] Administration Mercaptopurine 25 mg 07/24/20 10:00 07/24/20 10:02 Purinethol - PO 25 mg DAILY [facility] Administration Miscellaneous 1 each 07/23/20 22:00 07/24/20 21:14 Lidoderm Patch Removal MC 1 each DAILY@2200 [facility] Administration Multivitamins/Minerals/Vitamin C 1 tab 07/23/20 10:00 07/24/20 10:03 Tab-A-Vit - PO 1 tab DAILY [facility] Administration Non-Formulary Medication 1 tablet 07/24/20 10:00 Levonorgestrel-Ethin Estradiol [Vienva-28 Tablet] PO DAILY [facility] (Mesalamine [ 12 cap 07/24/20 10:00 07/24/20 10:03 Mesalamine Er] 0.375 PO 12 cap G Cap) DAILY [facility] Administration Vital Signs (last) Temp Pulse Resp BP Pulse Ox 98.8 F 79 18 104/59 L 100 07/25/20 05:50 07/25/20 05:50 07/25/20 05:50 07/25/20 05:50 07/25/20 05:50 Laboratory (coagulation) PT with INR 14.10 SEC (9.7-13.0) H 07/25/20 07:00 Laboratory 07/25/20 07:00 07/25/20 07:00 MRI Left Knee: Large effusion, no meniscus or ligamentous injuries. No fractures, bony lesions, or significant arthrosis seen. Quadriceps partial tear. COVID Test: Not Detected LYME PCR: Pending ASSESSMENT AND PLAN Ms. Ramirez is a 30 year old female presenting with left knee pain and knee effusion with downward trending CRP and WBC, and one time 101.4 fever overnight. We have reviewed the imaging and clinical findings in detail, as well as their potential implications. - Unlikely to be septic joint based on examination and history of trauma; Likely inflammatory arthritis. - FU synovial fluid culture results; (Currently NGTD); gram stain shows no organisms - FU Blood culture (Currently NGTD) - FU Rheumatology recs - FU Infectious disease recs (FU CT chest/abd) - Pain control: Transition to oral pain medications, minimize narcotic use - DVT prophylaxis - Ice/Elevation of left knee - Elevate HOB, encourage oral intake - Appreciate medical management (Nutrition optimization, decubitus precautions heel/sacrum) - WBAT LLE / PT - Continue Medical management
[2020-07-25] MEDS ORDERED: DEXTROSE 5%-WATER - 50 ML IVPB ONE (09:50)
[2020-07-25] MEDS ORDERED: cefTRIAXone SODIUM 1 GM VIAL ONE (09:50)
[2020-07-25] MEDS: HEPARIN NA (PORCINE) 5,000 UNITS/ML 1ML VIAL SQ SCH ×2 (09:57→21:26)
[2020-07-25] MEDS: MULTIVITAMINS (DAILY MVI) TABLET (FP) PO SCH (09:58)
[2020-07-25] MEDS: CEFTRIAXONE 1 GM in DEXTROSE 5%-WATER - 50 ML IVPB SCH (09:58)
[2020-07-25] MEDS: LIDOCAINE 5% TOPICAL PATCH TP SCH (09:59)
[2020-07-25] MEDS: MESALAMINE 0.375 GM PO SCH (09:59)
[2020-07-25] MEDS: MERCAPTOPURINE 50 MG TABLET PO SCH (09:59)
[2020-07-25] MEDS: LIDOCAINE PATCH REMOVAL MC SCH (21:26)
--- NOTE | 2020-07-26 08:02 | PN ---
Progress Note, Physician Chief Complaint: Seen and examined in bed . Swelling and pain iabout same as yesterday. No fever document however pt states she woke up around 2am with sheets saturated. All cx remain neg. CT without evidence of inflammation in intestine. Lyme serologies pending. CRP decreased to 101. ESR decreased to 14 History of Present Illness: Patient is a 30 year-old female medical condition ulcerative colitis, on immunosuppressant therapy. She initially presented to [facility] forl eft knee pain and a fever of 101f. Patient reported that she injured her knee when she twisted it approximately 4 days prior. In ED, pt received zosyn and had allergic reaction, benadryl IV given. Patient seen by Ortho, synovial fluid drained at bedside, gram stain pending, crystals negative. Dr Mendez (rheumotologist) evaluated patient at the bedside and knee was aspirated. - Current Medication List Current Medications: Active Medications Acetaminophen (Tylenol -) 650 mg PO Q6H PRN PRN Reason: FEVER Last Admin: 07/24/20 21:23 Dose: 650 mg Documented by: Diphenhydramine HCl (Benadryl -) 25 mg PO Q6H PRN PRN Reason: FOR ITCHING Heparin Sodium (Porcine) (Heparin -) 5,000 unit SQ BID [facility] Last Admin: 07/25/20 21:26 Dose: 5,000 unit Documented by: Ceftriaxone Sodium 1 gm/ (Dextrose) 50 mls @ 200 mls/hr IVPB DAILY [facility]; Protocol Last Admin: 07/25/20 09:58 Dose: 200 mls/hr Documented by: Ketorolac Tromethamine (Toradol) 10 mg PO Q6HPO PRN PRN Reason: PAIN LEVEL 7 - 10 Stop: 07/28/20 11:59 Lidocaine (Lidoderm Patch -) 1 patch TP DAILY [facility] Last Admin: 07/25/20 09:59 Dose: 1 patch Documented by: Mercaptopurine (Purinethol -) 25 mg PO DAILY [facility] Last Admin: 07/25/20 09:59 Dose: 25 mg Documented by: Miscellaneous (Lidoderm Patch Removal) 1 each MC DAILY@2200 [facility] Last Admin: 07/25/20 21:26 Dose: 1 each Documented by: Multivitamins/Minerals/Vitamin C (Tab-A-Vit -) 1 tab PO DAILY [facility] Last Admin: 07/25/20 09:58 Dose: 1 tab Documented by: Non-Formulary Medication (Levonorgestrel-Ethin Estradiol [Vienva-28 Tablet]) 1 tablet PO DAILY [facility] (Mesalamine [ Mesalamine Er] 0.375 G Cap) 12 cap PO DAILY [facility] Last Admin: 07/25/20 09:59 Dose: 12 cap Documented by: - Objective Vital Signs: Vital Signs Temperature 99.2 F 07/26/20 07:14 Pulse Rate 91 H 07/26/20 07:14 Respiratory Rate 18 07/26/20 07:14 Blood Pressure 98/58 L 07/26/20 07:14 O2 Sat by Pulse Oximetry (%) 98 07/26/20 07:14 Additional Findings/Remarks: Constitutional: Yes: Well Nourished, No Distress, Calm Eyes: Yes: WNL, Conjunctiva Clear HENT: Yes: WNL, Atraumatic, Normocephalic Cardiovascular: Yes: WNL, Regular Rate and Rhythm Respiratory: Yes: WNL, Regular, CTA Bilaterally Gastrointestinal: Yes: WNL, Normal Bowel Sounds ...Rectal Exam: Yes: Deferred Genitourinary: Yes: WNL Breast(s): Yes: WNL Musculoskeletal: Yes: Joint Stiffness, Joint Swelling (to left knee) Extremities: Yes: WNL Edema: No Edema: LLE: Trace Peripheral Pulses WNL: Yes Peripheral Pulses: Left Radial: 2+, Right Radial: 2+, Left Doralis Pedis: 2+, Right Dorsalis Pedis: 2+, Left Femoral: 2+, Right Femoral: 2+ Integumentary: Yes: WNL Neurological: Yes: WNL, Alert, Oriented ...Motor Strength: WNL Labs: CBC, BMP 07/25/20 07:00 07/25/20 07:00 INR, PTT INR 1.19 (0.83-1.09) H 07/25/20 07:00 Problem List - Problems (1) Prophylactic measure Assessment/Plan: FEN Fluids: adequate PO intake Electrolytes: monitor & replete as needed Nutrition: reg diet DVT moderate risk sq heparin Dispo Maintain as inpatient full code discharge planning Code(s): Z29.9 - ENCOUNTER FOR PROPHYLACTIC MEASURES, UNSPECIFIED (2) COVID-19 ruled out Assessment/Plan: negative pcr Code(s): Z03.818 - ENCNTR FOR OBS FOR SUSP EXPSR TO OTH BIOLG AGENTS RULED OUT (3) Fever Assessment/Plan: afebrile c/t monitor Ucx/Bcx ngtd synovial fluid ngtd tick borne illness w/u in progress-lyme pending c/w abx ID following Code(s): R50.9 - FEVER, UNSPECIFIED (4) Left knee injury Assessment/Plan: left knee swelling/possible cellulitis vs septic joint however unlikely given no growth in cx ESR 101 CRP 14 MRI of left ext: left knee MRI: large intra articular effusion with soft tissue swelling surrounding the knee joint. findings may be post traumatic with partial quad tendon tear underlying inflammatory/infectious process to be excluded. ortho following and patient s/p synovial fluid collection, seen by rheumatology and knee aspirated done, cultures ngtd ice/Elevation of left knee. nutritional support with multivitamin and supplements (ensure) c/w physical therapy Code(s): S89.92XA - UNSPECIFIED INJURY OF LEFT LOWER LEG, INITIAL ENCOUNTER (5) Ulcerative colitis Assessment/Plan: on Remicade infusions, last received on 07/13/20 and receives q 7 weeks. Follows with GI as an outpatient-Dr Carmona had zoom call with care team possible extraintestional UC flair manifesting in joint r/o other etiologies such as tick borne illness CT nml plan to give prednisone 40mg after dischussion with Anisa Trevino Bobde. Pt would like to confirm with Dr Quigley (home GI doctor) prior to giving. Left message and awaiting call back Code(s): K51.90 - ULCERATIVE COLITIS, UNSPECIFIED, WITHOUT COMPLICATIONS (6) Urinary tract infection Assessment/Plan: UA with evidence of UTI, +1 leuks and + bacteria Ucx ngtd c/w abx Code(s): N39.0 - URINARY TRACT INFECTION, SITE NOT SPECIFIED Visit type - Emergency Visit Emergency Visit: Yes ED Registration Date: 07/21/20 Care time: The patient presented to the Emergency Department on the above date and was hospitalized for further evaluation of their emergent condition. - New Patient This patient is new to me today: No - Critical Care Critical Care patient: No - Discharge Referral Referred to [facility] Med P.C.: No
[2020-07-26] MEDS ORDERED: cefTRIAXone SODIUM 1 GM VIAL ONE (09:05)
[2020-07-26] MEDS ORDERED: DEXTROSE 5%-WATER - 50 ML IVPB ONE (09:05)
[2020-07-26] MEDS: LIDOCAINE 5% TOPICAL PATCH TP SCH (09:25)
[2020-07-26] MEDS: MULTIVITAMINS (DAILY MVI) TABLET (FP) PO SCH (09:26)
[2020-07-26] MEDS: MERCAPTOPURINE 50 MG TABLET PO SCH (09:29)
[2020-07-26] MEDS: HEPARIN NA (PORCINE) 5,000 UNITS/ML 1ML VIAL SQ SCH ×2 (09:29→21:00)
[2020-07-26] MEDS: MESALAMINE 0.375 GM PO SCH (09:29)
[2020-07-26 09:45] LABS: BASO % 0.7 % (0-2.0); HEMATOCRIT 32.4 % (32.4-45.2); HEMOGLOBIN 10.9 GM/dL (10.7-15.3); LYMPH % 25.4 % (8-40); MCHC 33.7 g/dl (32.0-36.0); MEAN CELL VOLUME 88.9 fl (80-96); MEAN PLT VOLUME 8.1 fl (7.5-11.1); MONO % 9.5 % (3.8-10.2); NEUT % 63.4 % (42.8-82.8); PLATELET COUNT 357 K/MM3 (134-434); RBC 3.64 M/mm3 (3.60-5.2); RDW 13.3 % (11.6-15.6); WHITE BLOOD COUNT 8.3 K/mm3 (4.0-10.0)
[2020-07-26 09:51] LABS: INR 1.25 (0.83-1.09); PROTHROMBIN TIME (PATIENT) 14.8 SEC (9.7-13.0)
[2020-07-26 10:10] LABS: ALBUMIN 2.8 g/dl (3.4-5.0); BILIRUBIN,TOTAL 0.9 mg/dL (0.2-1); CREATININE 0.7 mg/dL (0.55-1.3); MAGNESIUM 2.2 mg/dL (1.8-2.4); POTASSIUM 4.2 mmol/L (3.5-5.1)
[2020-07-26 10:17] LABS: CALCIUM 8.6 mg/dL (8.5-10.1)
[2020-07-26 11:28] LABS: ERYTHROCYTE SEDIMENTATION RATE 101 mm/hr (0-20)
--- NOTE | 2020-07-26 12:18 | PN ---
Progress Note, Physician History of Present Illness: stabe - Current Medication List Current Medications: Active Medications Acetaminophen (Tylenol -) 650 mg PO Q6H PRN PRN Reason: FEVER Last Admin: 07/24/20 21:23 Dose: 650 mg Documented by: Diphenhydramine HCl (Benadryl -) 25 mg PO Q6H PRN PRN Reason: FOR ITCHING Heparin Sodium (Porcine) (Heparin -) 5,000 unit SQ BID [facility] Last Admin: 07/26/20 09:29 Dose: 5,000 unit Documented by: Ketorolac Tromethamine (Toradol) 10 mg PO Q6HPO PRN PRN Reason: PAIN LEVEL 7 - 10 Stop: 07/28/20 11:59 Lidocaine (Lidoderm Patch -) 1 patch TP DAILY [facility] Last Admin: 07/26/20 09:25 Dose: 1 patch Documented by: Mercaptopurine (Purinethol -) 25 mg PO DAILY [facility] Last Admin: 07/26/20 09:29 Dose: Not Given Documented by: Miscellaneous (Lidoderm Patch Removal) 1 each MC DAILY@2200 [facility] Last Admin: 07/25/20 21:26 Dose: 1 each Documented by: Multivitamins/Minerals/Vitamin C (Tab-A-Vit -) 1 tab PO DAILY [facility] Last Admin: 07/26/20 09:26 Dose: 1 tab Documented by: Non-Formulary Medication (Levonorgestrel-Ethin Estradiol [Vienva-28 Tablet]) 1 tablet PO DAILY [facility] (Mesalamine [ Mesalamine Er] 0.375 G Cap) 12 cap PO DAILY [facility] Last Admin: 07/26/20 09:29 Dose: Not Given Documented by: - Objective Vital Signs: Vital Signs Temperature 98.6 F 07/26/20 10:20 Pulse Rate 108 H 07/26/20 10:20 Respiratory Rate 18 07/26/20 10:20 Blood Pressure 104/67 07/26/20 10:20 O2 Sat by Pulse Oximetry (%) 98 07/26/20 10:20 Labs: CBC, BMP 07/26/20 09:26 07/26/20 09:26 INR, PTT INR 1.25 (0.83-1.09) H 07/26/20 09:26
--- NOTE | 2020-07-26 13:21 | EKG ---
Test Reason : Blood Pressure : / mmHG Vent. Rate : 094 BPM Atrial Rate : 094 BPM P-R Int : 164 ms QRS Dur : 080 ms QT Int : 356 ms P-R-T Axes : 074 072 069 degrees QTc Int : 445 ms NORMAL SINUS RHYTHM NORMAL ECG WHEN COMPARED WITH ECG OF 21-JUL-2020 01:35, T WAVE INVERSION NO LONGER EVIDENT IN ANTERIOR LEADS Confirmed by OSMIN COPE MD ([id number]) on 07/26/2020 1:21:14 PM Referred By: Confirmed By:OSMIN COPE MD
[2020-07-26] MEDS: predniSONE 20 MG TABLET (UD) PO SCH ×2 (14:01→17:07)
--- NOTE | 2020-07-26 15:56 | PN ---
Progress Note (short form) - Note Progress Note: ORTHOPEDIC SURGERY PROGRESS NOTE Department of Orthopedic Surgery SUBJECTIVE No acute events overnight. No complaints currently. Denies chest pain, shortness of breath, or calf pain. Patient has developed a non productive cough. No nausea or vomiting. Tolerating oral intake. Pain controlled. PHYSICAL EXAMINATION Constitutional: Alert and oriented to person, place, and time. Appears well-dev eloped and well-nourished. No acute distress, appropriate mood and affect. Left Lower Extremity: Skin warm, dry, and intact; no lesions, rashes or ulcers noted. There is an effusion present. Muscle mass otherwise equal and symmetric to contralateral side. No atrophy noted. No masses noted. Patient has medial joint line tenderness; nontender throughout rest of extremity. No cords or calf tenderness No significant calf/ankle edema. Patient has LROM, however has no pain with ROM through arc of 0-80 degrees of flexion actively and passively. Full passive and active ROM of the ankle and foot and toes, free from pain. Joints stable with no pathologic laxity. EHL/TA/GS motor intact; SILT distally; 2+ DP pulses; Cap refill brisk. Tone and reflexes normal. DVT Exam: No evidence of DVT seen on physical exam; No cords or calf tenderness; No significant calf/ankle edema. Intake & Output 07/24/20 07/25/20 07/26/20 23:59 23:59 23:59 Intake Total 1320 650 440 Balance 1320 650 440 Intake: IV 950 Normal Saline - 1,000 ml 950 @ 50 mls/hr IV [facility]IR [facility] Rx#:[id number] IVPB 50 50 Oral 320 600 440 Other: Voiding Method Toilet Toilet Toilet # Unmeasured Voids Void 3 2 Bowel Movement No No No Active Medications Generic Name Dose Route Start Last Admin Trade Name Freq PRN Reason Stop Dose Admin Acetaminophen 650 mg 07/21/20 00:59 07/24/20 21:23 Tylenol - PO 650 mg Q6H PRN Administration FEVER Diphenhydramine HCl 25 mg 07/23/20 11:15 Benadryl - PO Q6H PRN FOR ITCHING Heparin Sodium (Porcine) 5,000 unit 07/23/20 22:00 07/26/20 09:29 Heparin - SQ 5,000 unit BID [facility] Administration Ketorolac Tromethamine 10 mg 07/23/20 11:25 Toradol PO 07/28/20 11:59 Q6HPO PRN PAIN LEVEL 7 - 10 Lidocaine 1 patch 07/23/20 16:45 07/26/20 09:25 Lidoderm Patch - TP 1 patch DAILY [facility] Administration Mercaptopurine 25 mg 07/24/20 10:00 07/26/20 09:29 Purinethol - PO Not Given DAILY [facility] Miscellaneous 1 each 07/23/20 22:00 07/25/20 21:26 Lidoderm Patch Removal MC 1 each DAILY@2200 [facility] Administration Multivitamins/Minerals/Vitamin C 1 tab 07/23/20 10:00 07/26/20 09:26 Tab-A-Vit - PO 1 tab DAILY [facility] Administration Non-Formulary Medication 1 tablet 07/24/20 10:00 Levonorgestrel-Ethin Estradiol [Vienva-28 Tablet] PO DAILY [facility] (Mesalamine [ 12 cap 07/24/20 10:00 07/26/20 09:29 Mesalamine Er] 0.375 PO Not Given G Cap) DAILY [facility] Prednisone 40 mg 07/26/20 12:45 Deltasone - PO DAILY [facility] Vital Signs (last) Temp Pulse Resp BP Pulse Ox 97.6 F 97 H 18 94/64 98 07/26/20 14:38 07/26/20 14:38 07/26/20 14:38 07/26/20 14:38 07/26/20 10:20 Laboratory (coagulation) PT with INR 14.80 SEC (9.7-13.0) H 07/26/20 09:26 Laboratory 07/26/20 09:26 07/26/20 09:26 MRI Left Knee: Large effusion, no meniscus or ligamentous injuries. No fractures, bony lesions, or significant arthrosis seen. Quadriceps partial tear. COVID Test: Not Detected LYME PCR: Pending ASSESSMENT AND PLAN Ms. Ramirez is a 30 year old female presenting with left knee pain and knee effusion with downward trending CRP and WBC, no fevers overnight; We have reviewed the imaging and clinical findings in detail, as well as their potential implications. - Unlikely to be septic joint based on examination and history of trauma; Likely inflammatory arthritis. - Synovial fluid culture results; (NGTD - Final); Final gram stain shows no organisms - Blood culture (NGTD - Final) - FU Rheumatology recs - FU Infectious disease recs - Pain control: Transition to oral pain medications, minimize narcotic use - DVT prophylaxis - Ice/Elevation of left knee - Elevate HOB, encourage oral intake - Appreciate medical management (Nutrition optimization, decubitus precautions heel/sacrum) - WBAT LLE / PT - Continue Medical management - No further orthopedic surgical intervention at this time. Please re-consult if as needed.
[2020-07-26] MEDS: ACETAMINOPHEN 325 MG TABLET (FP) PO PRN (19:28)
[2020-07-26] MEDS: LIDOCAINE PATCH REMOVAL MC SCH (21:01)
--- NOTE | 2020-07-27 08:07 | PN ---
Progress Note, Physician Chief Complaint: Seen and examined in bed.Low grade temp overnight 100.4. Steroids on hold as per pt request until she speaks to Dr Oconnell (home GI) Mutiple attempts made to contact her. Lyme serologies pending. Spoke with [facility] and possible results thursday/Thursday. Abx continues CRP 14.4 ESR 112 History of Present Illness: Patient is a 30 year-old female medical condition ulcerative colitis, on immunosuppressant therapy. She initially presented to [facility] forl eft knee pain and a fever of 101f. Patient reported that she injured her knee when she twisted it approximately 4 days prior. In ED, pt received zosyn and had allergic reaction, benadryl IV given. Patient seen by Ortho, synovial fluid drained at bedside, gram stain pending, crystals negative. Dr Mendez (rheumotologist) evaluated patient at the bedside and knee was aspirated. - Current Medication List Current Medications: Active Medications Acetaminophen (Tylenol -) 650 mg PO Q6H PRN PRN Reason: FEVER Last Admin: 07/26/20 19:28 Dose: 650 mg Documented by: Diphenhydramine HCl (Benadryl -) 25 mg PO Q6H PRN PRN Reason: FOR ITCHING Heparin Sodium (Porcine) (Heparin -) 5,000 unit SQ BID [facility] Last Admin: 07/26/20 21:00 Dose: 5,000 unit Documented by: Ketorolac Tromethamine (Toradol) 10 mg PO Q6HPO PRN PRN Reason: PAIN LEVEL 7 - 10 Stop: 07/28/20 11:59 Lidocaine (Lidoderm Patch -) 1 patch TP DAILY [facility] Last Admin: 07/26/20 09:25 Dose: 1 patch Documented by: Mercaptopurine (Purinethol -) 25 mg PO DAILY [facility] Last Admin: 07/26/20 09:29 Dose: Not Given Documented by: Miscellaneous (Lidoderm Patch Removal) 1 each MC DAILY@2200 [facility] Last Admin: 07/26/20 21:01 Dose: 1 each Documented by: Multivitamins/Minerals/Vitamin C (Tab-A-Vit -) 1 tab PO DAILY [facility] Last Admin: 07/26/20 09:26 Dose: 1 tab Documented by: Non-Formulary Medication (Levonorgestrel-Ethin Estradiol [Vienva-28 Tablet]) 1 tablet PO DAILY [facility] (Mesalamine [ Mesalamine Er] 0.375 G Cap) 12 cap PO DAILY [facility] Last Admin: 07/26/20 09:29 Dose: Not Given Documented by: Prednisone (Deltasone -) 40 mg PO DAILY [facility] Last Admin: 07/26/20 17:07 Dose: Not Given Documented by: - Objective Vital Signs: Vital Signs Temperature 99.3 F 07/27/20 06:00 Pulse Rate 80 07/27/20 06:00 Respiratory Rate 18 07/27/20 06:00 Blood Pressure 92/51 L 07/27/20 06:00 O2 Sat by Pulse Oximetry (%) 98 07/27/20 06:00 Additional Findings/Remarks: Constitutional: Yes: Well Nourished, No Distress, Calm Eyes: Yes: WNL, Conjunctiva Clear HENT: Yes: WNL, Atraumatic, Normocephalic Cardiovascular: Yes: WNL, Regular Rate and Rhythm Respiratory: Yes: WNL, Regular, CTA Bilaterally Gastrointestinal: Yes: WNL, Normal Bowel Sounds ...Rectal Exam: Yes: Deferred Genitourinary: Yes: WNL Breast(s): Yes: WNL Musculoskeletal: Yes: Joint Stiffness, Joint Swelling (to left knee) Extremities: Yes: WNL Edema: No Edema: LLE: Trace Peripheral Pulses WNL: Yes Peripheral Pulses: Left Radial: 2+, Right Radial: 2+, Left Doralis Pedis: 2+, Right Dorsalis Pedis: 2+, Left Femoral: 2+, Right Femoral: 2+ Integumentary: Yes: WNL Neurological: Yes: WNL, Alert, Oriented ...Motor Strength: WNL Labs: CBC, BMP 07/26/20 09:26 07/26/20 09:26 INR, PTT INR 1.25 (0.83-1.09) H 07/26/20 09:26 Problem List - Problems (1) Prophylactic measure Assessment/Plan: FEN Fluids: adequate PO intake Electrolytes: monitor & replete as needed Nutrition: reg diet DVT moderate risk sq heparin Dispo Maintain as inpatient full code discharge planning Code(s): Z29.9 - ENCOUNTER FOR PROPHYLACTIC MEASURES, UNSPECIFIED (2) COVID-19 ruled out Assessment/Plan: negative pcr Code(s): Z03.818 - ENCNTR FOR OBS FOR SUSP EXPSR TO OT BIOLG AGENTS RULED OUT (3) Fever Assessment/Plan: afebrile now, Tmax 100.4 overnight c/t monitor Ucx/Bcx ngtd synovial fluid ngtd tick borne illness w/u in progress-lyme pending c/w abx ID following Code(s): R50.9 - FEVER, UNSPECIFIED (4) Left knee injury Assessment/Plan: left knee swelling/possible cellulitis vs septic joint however unlikely given no growth in cx montior crp/esr MRI of left ext: left knee MRI: large intra articular effusion with soft tissue swelling surrounding the knee joint. findings may be post traumatic with partial quad tendon tear underlying inflammatory/infectious process to be excluded. ortho following and patient s/p synovial fluid collection, seen by rheumatology and knee aspirated done, cultures ngtd ice/Elevation of left knee. nutritional support with multivitamin and supplements (ensure) c/w physical therapy Code(s): S89.92XA - UNSPECIFIED INJURY OF LEFT LOWER LEG, INITIAL ENCOUNTER (5) Ulcerative colitis Assessment/Plan: on Remicade infusions, last received on 07/13/20 and receives q 7 weeks. Follows with GI as an outpatient-Dr Carmona had zoom call with care team possible extraintestional UC flair manifesting in joint r/o other etiologies such as tick borne illness CT nml prednisone 40mg on hold awaiting call back from Dr Quigley as per pt request- multiple attempts made to contact by both telegraphic typewriter operator and pt Code(s): K51.90 - ULCERATIVE COLITIS, UNSPECIFIED, WITHOUT COMPLICATIONS (6) Urinary tract infection Assessment/Plan: UA with evidence of UTI, +1 leuks and + bacteria Ucx ngtd c/w abx Code(s): N39.0 - URINARY TRACT INFECTION, SITE NOT SPECIFIED Visit type - Emergency Visit Emergency Visit: Yes ED Registration Date: 07/21/20 Care time: The patient presented to the Emergency Department on the above date and was hospitalized for further evaluation of their emergent condition. - New Patient This patient is new to me today: No - Critical Care Critical Care patient: No - Discharge Referral Referred to [facility] Med P.C.: No
[2020-07-27 08:47] LABS: BASO % 0.6 % (0-2.0); EOS % 1.1 % (0-4.5); HEMATOCRIT 30.9 % (32.4-45.2); HEMOGLOBIN 10.4 GM/dL (10.7-15.3); LYMPH % 29.7 % (8-40); MCH 29.9 pg (25.7-33.7); MCHC 33.6 g/dl (32.0-36.0); MEAN PLT VOLUME 9.1 fl (7.5-11.1); MONO % 10.1 % (3.8-10.2); NEUT % 58.5 % (42.8-82.8); PLATELET COUNT 361 K/MM3 (134-434); RBC 3.48 M/mm3 (3.60-5.2); WHITE BLOOD COUNT 9.5 K/mm3 (4.0-10.0)
[2020-07-27 09:07] LABS: ALBUMIN 2.7 g/dl (3.4-5.0); BILIRUBIN,TOTAL 0.8 mg/dL (0.2-1); BLOOD UREA NITROGEN 9.5 mg/dL (7-18); CALCIUM 8.7 mg/dL (8.5-10.1); CREATININE 0.7 mg/dL (0.55-1.3); MAGNESIUM 2.3 mg/dL (1.8-2.4); POTASSIUM 4.4 mmol/L (3.5-5.1); TOT PROT 6.9 g/dl (6.4-8.2)
[2020-07-27 10:07] LABS: ERYTHROCYTE SEDIMENTATION RATE 112 mm/hr (0-20)
[2020-07-27] MEDS ORDERED: cefTRIAXone SODIUM 1 GM VIAL ONE (10:21)
[2020-07-27] MEDS ORDERED: DEXTROSE 5%-WATER - 50 ML IVPB ONE (10:21)
[2020-07-27] MEDS: MULTIVITAMINS (DAILY MVI) TABLET (FP) PO SCH (10:33)
[2020-07-27] MEDS: LIDOCAINE 5% TOPICAL PATCH TP SCH (10:33)
[2020-07-27] MEDS: HEPARIN NA (PORCINE) 5,000 UNITS/ML 1ML VIAL SQ SCH ×2 (10:34→21:58)
[2020-07-27] MEDS: MESALAMINE 0.375 GM PO SCH (10:34)
[2020-07-27] MEDS: MERCAPTOPURINE 50 MG TABLET PO SCH (10:35)
[2020-07-27] MEDS: CEFTRIAXONE 1 GM in DEXTROSE 5%-WATER - 50 ML IVPB SCH (10:35)
[2020-07-27] MEDS: predniSONE 20 MG TABLET (UD) PO SCH ×2 (10:58→17:38)
--- NOTE | 2020-07-27 12:34 | PN ---
Progress Note, Physician History of Present Illness: stable spiked a low grade fever - Current Medication List Current Medications: Active Medications Acetaminophen (Tylenol -) 650 mg PO Q6H PRN PRN Reason: FEVER Last Admin: 07/26/20 19:28 Dose: 650 mg Documented by: Diphenhydramine HCl (Benadryl -) 25 mg PO Q6H PRN PRN Reason: FOR ITCHING Heparin Sodium (Porcine) (Heparin -) 5,000 unit SQ BID [facility] Last Admin: 07/27/20 10:34 Dose: 5,000 unit Documented by: Ceftriaxone Sodium 1 gm/ (Dextrose) 50 mls @ 200 mls/hr IVPB DAILY [facility]; Protocol Last Admin: 07/27/20 10:35 Dose: 200 mls/hr Documented by: Ketorolac Tromethamine (Toradol) 10 mg PO Q6HPO PRN PRN Reason: PAIN LEVEL 7 - 10 Stop: 07/28/20 11:59 Lidocaine (Lidoderm Patch -) 1 patch TP DAILY [facility] Last Admin: 07/27/20 10:33 Dose: 1 patch Documented by: Mercaptopurine (Purinethol -) 25 mg PO DAILY@1800 [facility] Miscellaneous (Lidoderm Patch Removal) 1 each MC DAILY@2200 [facility] Last Admin: 07/26/20 21:01 Dose: 1 each Documented by: Multivitamins/Minerals/Vitamin C (Tab-A-Vit -) 1 tab PO DAILY [facility] Last Admin: 07/27/20 10:33 Dose: 1 tab Documented by: Non-Formulary Medication (Levonorgestrel-Ethin Estradiol [Vienva-28 Tablet]) 1 tablet PO DAILY [facility] (Mesalamine [ Mesalamine Er] 0.375 G Cap) 12 cap PO HS [facility] Prednisone (Deltasone -) 40 mg PO DAILY [facility] Last Admin: 07/27/20 10:58 Dose: Not Given Documented by: - Objective Vital Signs: Vital Signs Temperature 99.3 F 07/27/20 11:34 Pulse Rate 106 H 07/27/20 11:34 Respiratory Rate 18 07/27/20 11:34 Blood Pressure 95/55 L 07/27/20 11:34 O2 Sat by Pulse Oximetry (%) 99 07/27/20 11:34 Constitutional: Yes: No Distress, Calm Cardiovascular: Yes: S1, S2 Respiratory: Yes: Regular, CTA Bilaterally Gastrointestinal: Yes: Normal Bowel Sounds, Soft Musculoskeletal: Yes: WNL Extremities: Yes: Other (swelling of the leg) Neurological: Yes: Alert, Oriented Psychiatric: Yes: Alert, Oriented Labs: CBC, BMP 07/27/20 07:06 07/27/20 07:06 INR, PTT INR 1.25 (0.83-1.09) H 07/26/20 09:26 Assessment/Plan Problem List - Problems (1) Ulcerative colitis Code(s): K51.90 - ULCERATIVE COLITIS, UNSPECIFIED, WITHOUT COMPLICATIONS (2) Left knee injury Code(s): S89.92XA - UNSPECIFIED INJURY OF LEFT LOWER LEG, INITIAL ENCOUNTER uti plan continue ceftriaxone monitor esr and crp esr has increased rest as per the team
[2020-07-27] MEDS ORDERED: guaiFENesin/D-METHORPHAN HB 10 ML UNIT-DOSE CUPS PO PRN (13:19)
--- NOTE | 2020-07-27 17:10 | PN ---
Progress Note, Physician History of Present Illness: The patient continues having pain and swelling in the left knee. and fever spike every evening. Otherwise she feels well. As per discussion with her GI and team, we suggested to start Prednisone 40 mg/d however she refused the medication yesterday and today. Lyme antibody and PCR pending. I spoke again with the patient and she agrees to start the Prednisone. - Current Medication List Current Medications: Active Medications Acetaminophen (Tylenol -) 650 mg PO Q6H PRN PRN Reason: FEVER Last Admin: 07/26/20 19:28 Dose: 650 mg Documented by: Diphenhydramine HCl (Benadryl -) 25 mg PO Q6H PRN PRN Reason: FOR ITCHING Guaifenesin (Robitussin Dm -) 10 ml PO Q6H PRN PRN Reason: COUGH Heparin Sodium (Porcine) (Heparin -) 5,000 unit SQ BID [facility] Last Admin: 07/27/20 10:34 Dose: 5,000 unit Documented by: Ceftriaxone Sodium 1 gm/ (Dextrose) 50 mls @ 200 mls/hr IVPB DAILY [facility]; Protocol Last Admin: 07/27/20 10:35 Dose: 200 mls/hr Documented by: Ketorolac Tromethamine (Toradol) 10 mg PO Q6HPO PRN PRN Reason: PAIN LEVEL 7 - 10 Stop: 07/28/20 11:59 Lidocaine (Lidoderm Patch -) 1 patch TP DAILY [facility] Last Admin: 07/27/20 10:33 Dose: 1 patch Documented by: Mercaptopurine (Purinethol -) 25 mg PO DAILY@1800 [facility] Miscellaneous (Lidoderm Patch Removal) 1 each MC DAILY@2200 [facility] Last Admin: 07/26/20 21:01 Dose: 1 each Documented by: Multivitamins/Minerals/Vitamin C (Tab-A-Vit -) 1 tab PO DAILY [facility] Last Admin: 07/27/20 10:33 Dose: 1 tab Documented by: Non-Formulary Medication (Levonorgestrel-Ethin Estradiol [Vienva-28 Tablet]) 1 tablet PO DAILY [facility] (Mesalamine [ Mesalamine Er] 0.375 G Cap) 12 cap PO HS [facility] Prednisone (Deltasone -) 40 mg PO DAILY [facility] Last Admin: 07/27/20 10:58 Dose: Not Given Documented by: - Objective Vital Signs: Vital Signs Temperature 98.6 F 07/27/20 13:50 Pulse Rate 106 H 07/27/20 13:50 Respiratory Rate 18 07/27/20 13:50 Blood Pressure 94/56 L 07/27/20 13:50 O2 Sat by Pulse Oximetry (%) 99 07/27/20 11:34 HENT: Yes: WNL Cardiovascular: Yes: WNL Respiratory: Yes: WNL Gastrointestinal: Yes: WNL Musculoskeletal: Yes: Other (Mild tenderness and swelling in the left knee) Labs: CBC, BMP 07/27/20 07:06 07/27/20 07:06 INR, PTT INR 1.25 (0.83-1.09) H 07/26/20 09:26 Problem List - Problems (1) Effusion, left knee Assessment/Plan: Monoarthritis of the left knee most likjely related to ulcerative colitis, less likely Lyme disease.. Plan; Start Prednisone 40 mg /d. Code(s): M25.462 - EFFUSION, LEFT KNEE
[2020-07-27] MEDS ORDERED: MERCAPTOPURINE 50 MG TABLET PO SCH (18:00)
--- NOTE | 2020-07-27 18:26 | PN ---
Progress Note (short form) - Note Progress Note: ORTHOPEDIC SURGERY PROGRESS NOTE Department of Orthopedic Surgery SUBJECTIVE No acute events overnight. No complaints currently. Denies chest pain, shortness of breath, or calf pain. Patient has developed a non productive cough. No nausea or vomiting. Tolerating oral intake. Pain controlled. PHYSICAL EXAMINATION Constitutional: Alert and oriented to person, place, and time. Appears well-dev eloped and well-nourished. No acute distress, appropriate mood and affect. Left Lower Extremity: Skin warm, dry, and intact; no lesions, rashes or ulcers noted. There is an improved effusion present. Muscle mass otherwise equal and symmetric to contralateral side. No atrophy noted. No masses noted. Patient has medial joint line tenderness; nontender throughout rest of extremity. No cords or calf tenderness; No significant calf/ankle edema. Patient has LROM, however has no pain with ROM through arc of 0-80 degrees of flexion actively and passively. Full passive and active ROM of the ankle and foot and toes, free from pain. Joints stable with no pathologic laxity. EHL/TA/GS motor intact; SILT distally; 2+ DP pulses; Cap refill brisk. Tone and reflexes normal. DVT Exam: No evidence of DVT seen on physical exam; No cords or calf tenderness; No significant calf/ankle edema. Intake & Output 07/25/20 07/26/20 07/27/20 23:59 23:59 23:59 Intake Total 650 680 350 Balance 650 680 350 Intake: IVPB 50 50 Oral 600 680 300 Other: Voiding Method Toilet Toilet Toilet # Unmeasured Voids Void 2 3 Bowel Movement No No Yes Body Mass Index (BMI) 17.6 Active Medications Generic Name Dose Route Start Last Admin Trade Name Freq PRN Reason Stop Dose Admin Acetaminophen 650 mg 07/21/20 00:59 07/26/20 19:28 Tylenol - PO 650 mg Q6H PRN Administration FEVER Diphenhydramine HCl 25 mg 07/23/20 11:15 Benadryl - PO Q6H PRN FOR ITCHING Guaifenesin 10 ml 07/27/20 13:19 Robitussin Dm - PO Q6H PRN COUGH Heparin Sodium (Porcine) 5,000 unit 07/23/20 22:00 07/27/20 10:34 Heparin - SQ 5,000 unit BID [facility] Administration Ceftriaxone Sodium 1 gm/ 50 mls @ 200 mls/hr 07/27/20 10:00 07/27/20 10:35 Dextrose IVPB 200 mls/hr DAILY [facility] Administration Protocol Ketorolac Tromethamine 10 mg 07/23/20 11:25 Toradol PO 07/28/20 11:59 Q6HPO PRN PAIN LEVEL 7 - 10 Lidocaine 1 patch 07/23/20 16:45 07/27/20 10:33 Lidoderm Patch - TP 1 patch DAILY [facility] Administration Mercaptopurine 25 mg 07/27/20 18:00 07/27/20 17:41 Purinethol - PO 25 mg DAILY@1800 [facility] Administration Miscellaneous 1 each 07/23/20 22:00 07/26/20 21:01 Lidoderm Patch Removal MC 1 each DAILY@2200 [facility] Administration Multivitamins/Minerals/Vitamin C 1 tab 07/23/20 10:00 07/27/20 10:33 Tab-A-Vit - PO 1 tab DAILY [facility] Administration (Mesalamine [ 12 cap 07/27/20 22:00 Mesalamine Er] 0.375 PO G Cap) HS [facility] Prednisone 40 mg 07/27/20 17:30 07/27/20 17:38 Deltasone - PO Not Given DAILY [facility] Vital Signs (last) Temp Pulse Resp BP Pulse Ox 98.6 F 106 H 18 94/56 L 99 07/27/20 13:50 07/27/20 13:50 07/27/20 13:50 07/27/20 13:50 07/27/20 11:34 Laboratory (coagulation) PT with INR 14.80 SEC (9.7-13.0) H 07/26/20 09:26 Laboratory 07/27/20 07:06 07/27/20 07:06 MRI Left Knee: Large effusion, no meniscus or ligamentous injuries. No fractures, bony lesions, or significant arthrosis seen. Quadriceps partial tear. COVID Test: Not Detected LYME PCR: Pending ASSESSMENT AND PLAN Ms. Ramirez is a 30 year old female presenting with left knee pain and knee effusion with downward trending CRP and WBC, no fevers overnight; We have reviewed the imaging and clinical findings in detail, as well as their potential implications. - Unlikely to be septic joint based on examination and history of trauma; Likely inflammatory arthritis. - Patient interested in being transferred to [facility] where her doctors are located. Medical team aware and working on this. - Synovial fluid culture results; (NGTD - Final); Final gram stain shows no organisms - Blood culture (NGTD - Final) - FU Rheumatology recs - FU Infectious disease recs - Pain control: Transition to oral pain medications, minimize narcotic use - DVT prophylaxis - Ice/Elevation of left knee - Elevate HOB, encourage oral intake - Appreciate medical management (Nutrition optimization, decubitus precautions heel/sacrum) - WBAT LLE / PT - Continue Medical management - No further orthopedic surgical intervention at this time. Please re-consult as needed.
--- NOTE | 2020-07-27 18:35 | DS ---
Physical Exam: SUBJECTIVE: Patient seen and examined OBJECTIVE: Vital Signs Period Temp Pulse Resp BP Sys/Pelletier Pulse Ox Last 24 Hr 98.6 F-100.4 F 80-106 18-18 92-101/51-58 98-99 PHYSICAL EXAM GENERAL: The patient is awake, alert, and fully oriented, in no acute distress. HEAD: Normal with no signs of trauma. EYES: PERRL, extraocular movements intact, sclera anicteric, conjunctiva clear. ENT: Ears normal, nares patent, oropharynx clear without exudates, moist mucous membranes. NECK: Trachea midline, full range of motion, supple. LUNGS: Breath sounds equal, clear to auscultation bilaterally, no wheezes, no crackles, no accessory muscle use. HEART: Regular rate and rhythm, S1, S2 without murmur, rub or gallop. ABDOMEN: Soft, nontender, nondistended, normoactive bowel sounds, no guarding, no rebound, no hepatosplenomegaly, no masses. EXTREMITIES: 2+ pulses, warm, well-perfused, no edema. NEUROLOGICAL: Cranial nerves II through XII grossly intact. Normal speech, gait not observed. PSYCH: Normal mood, normal affect. SKIN: Warm, dry, normal turgor, no rashes or lesions noted. LABS Laboratory Results - last 24 hr 07/27/20 07/27/20 07:06 07:06 WBC 9.5 RBC 3.48 L Hgb 10.4 L Hct 30.9 L MCV 89.0 MCH 29.9 MCHC 33.6 RDW 13.0 Plt Count 361 MPV 9.1 D Absolute Neuts (auto) 5.5 Neutrophils % 58.5 Lymphocytes % 29.7 Monocytes % 10.1 Eosinophils % 1.1 Basophils % 0.6 Nucleated RBC % 0 ESR 112 H Sodium 138 Potassium 4.4 Chloride 106 Carbon Dioxide 26 Anion Gap 6 L BUN 9.5 Creatinine 0.7 Est GFR (CKD-EPI)AfAm 132.87 Est GFR (CKD-EPI)NonAf 114.64 Random Glucose 89 Calcium 8.7 Magnesium 2.3 Total Bilirubin 0.8 AST 24 ALT 53 Alkaline Phosphatase 112 C-Reactive Protein 14.4 H Total Protein 6.9 Albumin 2.7 L HOSPITAL COURSE: Date of Admission:07/21/20 Date of Discharge: 07/27/20 Constitutional: Yes: Well Nourished, No Distress, Calm Eyes: Yes: WNL, Conjunctiva Clear HENT: Yes: WNL, Atraumatic, Normocephalic Cardiovascular: Yes: WNL, Regular Rate and Rhythm Respiratory: Yes: WNL, Regular, CTA Bilaterally Gastrointestinal: Yes: WNL, Normal Bowel Sounds ...Rectal Exam: Yes: Deferred Genitourinary: Yes: WNL Breast(s): Yes: WNL Musculoskeletal: Yes: Joint Stiffness, Joint Swelling (to left knee) Extremities: Yes: WNL Edema: No Edema: LLE: Trace Peripheral Pulses WNL: Yes Peripheral Pulses: Left Radial: 2+, Right Radial: 2+, Left Doralis Pedis: 2+, Right Dorsalis Pedis: 2+, Left Femoral: 2+, Right Femoral: 2+ Integumentary: Yes: WNL Neurological: Yes: WNL, Alert, Oriented ...Motor Strength: WNL Labs: CBC, BMP 07/26/20 09:26 07/26/20 09:26 INR, PTT INR 1.25 (0.83-1.09) H 07/26/20 09:26 Problem List - Problems (1) Prophylactic measure Assessment/Plan: FEN Fluids: adequate PO intake Electrolytes: monitor & replete as needed Nutrition: reg diet DVT moderate risk sq heparin Dispo Maintain as inpatient full code discharge planning Code(s): Z29.9 - ENCOUNTER FOR PROPHYLACTIC MEASURES, UNSPECIFIED (2) COVID-19 ruled out Assessment/Plan: negative pcr Code(s): Z03.818 - ENCNTR FOR OBS FOR SUSP EXPSR TO OTH BIOLG AGENTS RULED OUT (3) Fever Assessment/Plan: afebrile now, Tmax 100.4 overnight c/t monitor Ucx/Bcx ngtd synovial fluid ngtd tick borne illness w/u in progress-lyme pending c/w abx ID following Code(s): R50.9 - FEVER, UNSPECIFIED (4) Left knee injury Assessment/Plan: left knee swelling/possible cellulitis vs septic joint however unlikely given no growth in cx montior crp/esr MRI of left ext: left knee MRI: large intra articular effusion with soft tissue swelling surrounding the knee joint. findings may be post traumatic with partial quad tendon tear underlying inflammatory/infectious process to be excluded. ortho following and patient s/p synovial fluid collection, seen by rheumatology and knee aspirated done, cultures ngtd ice/Elevation of left knee. nutritional support with multivitamin and supplements (ensure) c/w physical therapy Code(s): S89.92XA - UNSPECIFIED INJURY OF LEFT LOWER LEG, INITIAL ENCOUNTER (5) Ulcerative colitis Assessment/Plan: on Remicade infusions, last received on 07/13/20 and receives q 7 weeks. Follows with GI as an outpatient-Dr Carmona had zoom call with care team and Dr Oconnell feels this is a possible extraintestional UC flair manifesting in joint r/o other etiologies such as tick borne illness CT nml prednisone 40mg on hold awaiting call back from Dr Quigley as per pt request- multiple attempts made to contact by both designer writer and pt Pt requesting to be trandfered to [facility] management Code(s): K51.90 - ULCERATIVE COLITIS, UNSPECIFIED, WITHOUT COMPLICATIONS (6) Urinary tract infection Assessment/Plan: UA with evidence of UTI, +1 leuks and + bacteria Ucx ngtd c/w abx Code(s): N39.0 - URINARY TRACT INFECTION, SITE NOT SPECIFIED Plpan to transfer to [facility] under medicine srervice with consultation from Dr Quigley/Mariann in GI Minutes to complete discharge: 55 Discharge Summary Problems reviewed: Yes Reason For Visit: CELLULITIS LEFT LEG Current Active Problems COVID-19 ruled out (Acute) Cellulitis of left leg (Acute) DVT prophylaxis (Acute) Effusion, left knee (Acute) Fever (Acute) Left knee injury (Acute) Prophylactic measure (Acute) Ulcerative colitis (Acute) Urinary tract infection (Acute) - Instructions - Home Medications Comprehensive Discharge Medication List: Ambulatory Orders Remicade Infusion - 07/21/20 Mercaptopurine [Purinethol -] 25 mg PO DAILY 07/23/20 Mesalamine [Mesalamine ER] 12 cap PO DAILY 07/23/20 Acetaminophen [Tylenol .Regular Strength -] 650 mg PO Q6H PRN tablet 07/27/20 Ceftriaxone [Rocephin -] 1 gm IVPB DAILY vial 07/27/20 Ceftriaxone [Rocephin -] 1 gm IVPB DAILY vial 07/27/20 Diphenhydramine HCl [Benadryl Capsule -] 25 mg PO Q6H PRN capsule 07/27/20 Guaifenesin Dm [Robitussin Dm -] 10 ml PO Q6H PRN cup 07/27/20 Heparin - 5,000 unit SQ BID vial 07/27/20 Ketorolac Tromethamine [Toradol -] 10 mg PO Q6HPO PRN tablet 07/27/20 Lidocaine 5% Patch [Lidoderm -] 1 patch TP DAILY patch 07/27/20 Lidocaine Patch Removal [Lidoderm Patch Removal] 1 each MC DAILY@2200 each 07/27/20 Multivitamins [Multivit ([facility] Formulary)] 1 tab PO DAILY tab 07/27/20 Prescription Drug Monitoring Program (I-STOP) results: I-STOP not reviewed Problem List - Problems (1) Prophylactic measure Code(s): Z29.9 - ENCOUNTER FOR PROPHYLACTIC MEASURES, UNSPECIFIED (2) COVID-19 ruled out Code(s): Z03.818 - ENCNTR FOR OBS FOR SUSP EXPSR TO OTH BIOLG AGENTS RULED OUT (3) Fever Code(s): R50.9 - FEVER, UNSPECIFIED (4) Left knee injury Code(s): S89.92XA - UNSPECIFIED INJURY OF LEFT LOWER LEG, INITIAL ENCOUNTER (5) Ulcerative colitis Code(s): K51.90 - ULCERATIVE COLITIS, UNSPECIFIED, WITHOUT COMPLICATIONS (6) Urinary tract infection Code(s): N39.0 - URINARY TRACT INFECTION, SITE NOT SPECIFIED This patient is new to me today: No Emergency Visit: Yes ED Registration Date: 07/21/20 Care time: The patient presented to the Emergency Department on the above date and was hospitalized for further evaluation of their emergent condition. Critical Care patient: No - Discharge Referral Referred to [facility] Med P.C.: No
[2020-07-27] MEDS: LIDOCAINE PATCH REMOVAL MC SCH (21:59)
[2020-07-27] MEDS ORDERED: MESALAMINE 0.375 GM PO SCH (22:00)
[2020-07-28 07:39] VITALS: BP 98/53; PULSE 95; TEMP 99.4
[2020-07-28 08:32] LABS: BASO % 0.5 % (0-2.0); EOS % 0.9 % (0-4.5); HEMATOCRIT 29.9 % (32.4-45.2); HEMOGLOBIN 10.3 GM/dL (10.7-15.3); LYMPH % 29.4 % (8-40); MCH 30.7 pg (25.7-33.7); MCHC 34.5 g/dl (32.0-36.0); MEAN PLT VOLUME 9.1 fl (7.5-11.1); MONO % 11.6 % (3.8-10.2); NEUT % 57.6 % (42.8-82.8); PLATELET COUNT 378 K/MM3 (134-434); RBC 3.36 M/mm3 (3.60-5.2); WHITE BLOOD COUNT 8.6 K/mm3 (4.0-10.0)
--- NOTE | 2020-07-28 08:39 | PN ---
Progress Note (short form) - Note Progress Note: Seen an examined and Pt wished to not be trasfered to [place] and to follow with her GI Dr on thursday. Afebrile overnight. Seen by ID and will continue on Kelfex for 5 days. Problem List - Problems (1) Prophylactic measure Code(s): Z29.9 - ENCOUNTER FOR PROPHYLACTIC MEASURES, UNSPECIFIED (2) COVID-19 ruled out Code(s): Z03.818 - ENCNTR FOR OBS FOR SUSP EXPSR TO OT BIOLG AGENTS RULED OUT (3) Fever Code(s): R50.9 - FEVER, UNSPECIFIED (4) Left knee injury Code(s): S89.92XA - UNSPECIFIED INJURY OF LEFT LOWER LEG, INITIAL ENCOUNTER (5) Ulcerative colitis Code(s): K51.90 - ULCERATIVE COLITIS, UNSPECIFIED, WITHOUT COMPLICATIONS (6) Urinary tract infection Code(s): N39.0 - URINARY TRACT INFECTION, SITE NOT SPECIFIED Visit type - Emergency Visit Emergency Visit: Yes ED Registration Date: 07/21/20 Care time: The patient presented to the Emergency Department on the above date and was hospitalized for further evaluation of their emergent condition. - New Patient This patient is new to me today: No - Critical Care Critical Care patient: No - Discharge Referral Referred to [facility] Med P.C.: No
[2020-07-28 08:56] LABS: ALBUMIN 2.7 g/dl (3.4-5.0); BILIRUBIN,TOTAL 0.9 mg/dL (0.2-1); BLOOD UREA NITROGEN 10.3 mg/dL (7-18); CALCIUM 8.9 mg/dL (8.5-10.1); CREATININE 0.7 mg/dL (0.55-1.3); MAGNESIUM 2.3 mg/dL (1.8-2.4); POTASSIUM 4.6 mmol/L (3.5-5.1); TOT PROT 6.8 g/dl (6.4-8.2)
[2020-07-28] MEDS ORDERED: cefTRIAXone SODIUM 1 GM VIAL ONE (09:09)
[2020-07-28] MEDS ORDERED: PT OWN MED DRAWER 7, Y5N ONE (09:09)
[2020-07-28] MEDS ORDERED: DEXTROSE 5%-WATER - 50 ML IVPB ONE (09:09)
[2020-07-28] MEDS: MULTIVITAMINS (DAILY MVI) TABLET (FP) PO SCH (09:32)
[2020-07-28] MEDS: LIDOCAINE 5% TOPICAL PATCH TP SCH (09:33)
[2020-07-28] MEDS: HEPARIN NA (PORCINE) 5,000 UNITS/ML 1ML VIAL SQ SCH (09:33)
[2020-07-28] MEDS: predniSONE 20 MG TABLET (UD) PO SCH (09:33)
[2020-07-28] MEDS: CEFTRIAXONE 1 GM in DEXTROSE 5%-WATER - 50 ML IVPB SCH (09:34)
[2020-07-28 09:41] LABS: ERYTHROCYTE SEDIMENTATION RATE 106 mm/hr (0-20)
--- NOTE | 2020-07-28 12:39 | PN ---
Progress Note, Physician History of Present Illness: Pt is alert, without acute distress. Still with some pain in Lt knee but not increasing, no erythema. - Current Medication List Current Medications: Active Medications Acetaminophen (Tylenol -) 650 mg PO Q6H PRN PRN Reason: FEVER Last Admin: 07/26/20 19:28 Dose: 650 mg Documented by: Diphenhydramine HCl (Benadryl -) 25 mg PO Q6H PRN PRN Reason: FOR ITCHING Guaifenesin (Robitussin Dm -) 10 ml PO Q6H PRN PRN Reason: COUGH Heparin Sodium (Porcine) (Heparin -) 5,000 unit SQ BID [facility] Last Admin: 07/28/20 09:33 Dose: 5,000 unit Documented by: Ceftriaxone Sodium 1 gm/ (Dextrose) 50 mls @ 200 mls/hr IVPB DAILY [facility]; Protocol Last Admin: 07/28/20 09:34 Dose: 200 mls/hr Documented by: Lidocaine (Lidoderm Patch -) 1 patch TP DAILY [facility] Last Admin: 07/28/20 09:33 Dose: 1 patch Documented by: Mercaptopurine (Purinethol -) 25 mg PO DAILY@1800 [facility] Last Admin: 07/27/20 17:41 Dose: 25 mg Documented by: Miscellaneous (Lidoderm Patch Removal) 1 each MC DAILY@2200 [facility] Last Admin: 07/27/20 21:59 Dose: 1 each Documented by: Multivitamins/Minerals/Vitamin C (Tab-A-Vit -) 1 tab PO DAILY [facility] Last Admin: 07/28/20 09:32 Dose: 1 tab Documented by: (Mesalamine [ Mesalamine Er] 0.375 G Cap) 12 cap PO HS [facility] Last Admin: 07/27/20 22:00 Dose: Not Given Documented by: Prednisone (Deltasone -) 40 mg PO DAILY [facility] Last Admin: 07/28/20 09:33 Dose: Not Given Documented by: - Objective Vital Signs: Vital Signs Temperature 99.4 F 07/28/20 07:00 Pulse Rate 95 H 07/28/20 07:00 Respiratory Rate 18 07/28/20 07:00 Blood Pressure 98/53 L 07/28/20 07:00 O2 Sat by Pulse Oximetry (%) 98 07/28/20 07:00 Constitutional: Yes: No Distress, Calm Cardiovascular: Yes: Regular Rate and Rhythm Respiratory: Yes: Regular Gastrointestinal: Yes: Normal Bowel Sounds, Soft Genitourinary: Yes: WNL Extremities: Yes: Other (Lt knee edema/mild warmth, no erythema) Neurological: Yes: Alert, Oriented Labs: CBC, BMP 07/28/20 07:05 07/28/20 07:05 INR, PTT INR 1.25 (0.83-1.09) H 07/26/20 09:26 Laboratory Last Values WBC 8.6 K/mm3 (4.0-10.0) 07/28/20 07:05 RBC 3.36 M/mm3 (3.60-5.2) L 07/28/20 07:05 Hgb 10.3 GM/dL (10.7-15.3) L 07/28/20 07:05 Hct 29.9 % (32.4-45.2) L 07/28/20 07:05 MCV 89.0 fl (80-96) 07/28/20 07:05 MCH 30.7 pg (25.7-33.7) 07/28/20 07:05 MCHC 34.5 g/dl (32.0-36.0) 07/28/20 07:05 RDW 13.0 % (11.6-15.6) 07/28/20 07:05 Plt Count 378 K/MM3 (134-434) 07/28/20 07:05 MPV 9.1 fl (7.5-11.1) 07/28/20 07:05 Absolute Neuts (auto) 5.0 K/mm3 (1.5-8.0) 07/28/20 07:05 Neutrophils % 57.6 % (42.8-82.8) 07/28/20 07:05 Lymphocytes % 29.4 % (8-40) 07/28/20 07:05 Monocytes % 11.6 % (3.8-10.2) H 07/28/20 07:05 Eosinophils % 0.9 % (0-4.5) 07/28/20 07:05 Basophils % 0.5 % (0-2.0) 07/28/20 07:05 Nucleated RBC % 0 % (0-0) 07/28/20 07:05 ESR 106 mm/hr (0-20) H 07/28/20 07:05 PT with INR 14.80 SEC (9.7-13.0) H 07/26/20 09:26 INR 1.25 (0.83-1.09) H 07/26/20 09:26 Sodium 136 mmol/L (136-145) 07/28/20 07:05 Potassium 4.6 mmol/L (3.5-5.1) 07/28/20 07:05 Chloride 104 mmol/L (98-107) 07/28/20 07:05 Carbon Dioxide 27 mmol/L (21-32) 07/28/20 07:05 Anion Gap 5 MMOL/L (8-16) L 07/28/20 07:05 BUN 10.3 mg/dL (7-18) 07/28/20 07:05 Creatinine 0.7 mg/dL (0.55-1.3) 07/28/20 07:05 Est GFR (CKD-EPI)AfAm 132.87 07/28/20 07:05 Est GFR (CKD-EPI)NonAf 114.64 07/28/20 07:05 Random Glucose 92 mg/dL (74-106) 07/28/20 07:05 Lactic Acid 1.0 mmol/L (0.4-2.0) 07/23/20 10:05 Calcium 8.9 mg/dL (8.5-10.1) 07/28/20 07:05 Magnesium 2.3 mg/dL (1.8-2.4) 07/28/20 07:05 Total Bilirubin 0.9 mg/dL (0.2-1) 07/28/20 07:05 AST 21 U/L (15-37) 07/28/20 07:05 ALT 50 U/L (13-61) 07/28/20 07:05 Alkaline Phosphatase 118 U/L (45-117) H 07/28/20 07:05 C-Reactive Protein 14.4 MG/DL (0.00-0.3) H 07/27/20 07:06 Total Protein 6.8 g/dl (6.4-8.2) 07/28/20 07:05 Albumin 2.7 g/dl (3.4-5.0) L 07/28/20 07:05 Urine Color Dk yellow 07/23/20 03:30 Urine Appearance Cloudy 07/23/20 03:30 Urine pH 5.5 (5.0-8.0) 07/23/20 03:30 Ur Specific [place] 1.023 (1.010-1.035) 07/23/20 03:30 Urine Protein 1+ (NEGATIVE) H 07/23/20 03:30 Urine Glucose (UA) Negative (NEGATIVE) 07/23/20 03:30 Urine Ketones Trace (NEGATIVE) H 07/23/20 03:30 Urine Blood 1+ (NEGATIVE) H 07/23/20 03:30 Urine Nitrite Negative (NEGATIVE) 07/23/20 03:30 Urine Bilirubin Negative (NEGATIVE) 07/23/20 03:30 Urine Urobilinogen 0.2 mg/dL (0.2-1.0) 07/23/20 03:30 Ur Leukocyte Esterase 1+ (NEGATIVE) H 07/23/20 03:30 Urine WBC (Auto) 154 /uL (0-25.8) 07/23/20 03:30 Urine RBC (Auto) 34 /uL (0-23.9) 07/23/20 03:30 Urine Casts (Auto) 12 /uL (0-3.1) 07/23/20 03:30 U Epithel Cells (Auto) >36 /uL (0-25.1) 07/23/20 03:30 Urine Bacteria (Auto) 33 /uL (0-1359) 07/23/20 03:30 Urine HCG, Qual Negative 07/21/20 00:05 Fluid Source Knee 07/23/20 11:30 Fluid WBC 91706 /mm3 07/23/20 11:30 Fluid RBC 766137 /mm3 07/23/20 11:30 Fluid Neutrophils 95 % 07/23/20 11:30 Fluid Lymphocytes 1 % 07/23/20 11:30 Pleural Monocytes 4 % 07/23/20 11:30 Pleural Histocytes 10 % 07/21/20 12:30 Synovial Crystals Negative 07/23/20 11:30 COVID-19 (BELLA) Not detected 07/21/20 01:10 Blood Type O POSITIVE 07/21/20 13:00 Antibody Screen Negative 07/21/20 12:45 Microbiology 07/23/20 10:05 Blood - Peripheral Venous Blood Culture - Final NO GROWTH AFTER 5 DAYS INCUBATION 07/23/20 10:05 Blood - Peripheral Venous Blood Culture - Final NO GROWTH AFTER 5 DAYS INCUBATION 07/23/20 11:30 Synovial Fluid - Knee Gram Stain - Final 07/23/20 11:30 Synovial Fluid - Knee Body Fluid Culture - Preliminary 07/23/20 11:30 Synovial Fluid - Knee Anaerobic Culture - Preliminary No growth. 07/21/20 12:30 Synovial Fluid - Knee Gram Stain - Final 07/21/20 12:30 Synovial Fluid - Knee Body Fluid Culture - Preliminary 07/21/20 12:30 Synovial Fluid - Knee Anaerobic Culture - Final NO ANAEROBES WERE ISOLATED 07/20/20 22:45 Blood - Peripheral Venous Blood Culture - Final NO GROWTH AFTER 5 DAYS INCUBATION 07/20/20 22:45 Blood - Peripheral Venous Blood Culture - Final NO GROWTH AFTER 5 DAYS INCUBATION 07/23/20 10:15 Urine - Urine Clean Catch Urine Culture - Final Normal Urogenital [place]ammie Problem List - Problems (1) Effusion, left knee Code(s): M25.462 - EFFUSION, LEFT KNEE (2) Fever Code(s): R50.9 - FEVER, UNSPECIFIED (3) Ulcerative colitis Code(s): K51.90 - ULCERATIVE COLITIS, UNSPECIFIED, WITHOUT COMPLICATIONS Assessment/Plan Lt knee effusion/swelling s/p trauma Ulcerative colitis on immunosuppressants UTI -- pt afebrile, mild Lt knee edema -- blood and synovial fluid cultures without growth -- suggest switch to keflex 500 mg po QID x 5 days -- follow up Lyme serology/esr -- pt scheduled to follow up with own doctor instructed to notify if swelling/pain worsens, febrile, or adverse reaction to antibiotic d/w medical team
--- NOTE | 2020-07-28 13:24 | PN ---
Progress Note (short form) - Note Progress Note: ORTHOPEDIC SURGERY PROGRESS NOTE Department of Orthopedic Surgery SUBJECTIVE No acute events overnight. No complaints currently. Denies chest pain, shortness of breath, or calf pain. Patient has developed a non productive cough. No nausea or vomiting. Tolerating oral intake. Pain controlled. PHYSICAL EXAMINATION Constitutional: Alert and oriented to person, place, and time. Appears well-dev eloped and well-nourished. No acute distress, appropriate mood and affect. Left Lower Extremity: Skin warm, dry, and intact; no lesions, rashes or ulcers noted. There is an improved effusion present. Muscle mass otherwise equal and symmetric to contralateral side. No atrophy noted. No masses noted. Patient has medial joint line tenderness; nontender throughout rest of extremity. No cords or calf tenderness; No significant calf/ankle edema. Patient has LROM, however has no pain with ROM through arc of 0-80 degrees of flexion actively and passively. Full passive and active ROM of the ankle and foot and toes, free from pain. Joints stable with no pathologic laxity. EHL/TA/GS motor intact; SILT distally; 2+ DP pulses; Cap refill brisk. Tone and reflexes normal. DVT Exam: No evidence of DVT seen on physical exam; No cords or calf tenderness; No significant calf/ankle edema. Intake & Output 07/26/20 07/27/20 07/28/20 23:59 23:59 23:59 Intake Total 680 590 350 Balance 680 590 350 Intake: IVPB 50 Oral 680 540 350 Other: Voiding Method Toilet Toilet Toilet # Unmeasured Voids Void 2 3 3 Bowel Movement No No No Body Mass Index (BMI) 17.6 Active Medications Generic Name Dose Route Start Last Admin Trade Name Freq PRN Reason Stop Dose Admin Acetaminophen 650 mg 07/21/20 00:59 07/26/20 19:28 Tylenol - PO 650 mg Q6H PRN Administration FEVER Cephalexin HCl 500 mg 07/28/20 18:00 Keflex - PO 08/02/20 17:59 Q6HPO PRIMO Diphenhydramine HCl 25 mg 07/23/20 11:15 Benadryl - PO Q6H PRN FOR ITCHING Guaifenesin 10 ml 07/27/20 13:19 Robitussin Dm - PO Q6H PRN COUGH Mercaptopurine 25 mg 07/27/20 18:00 07/27/20 17:41 Purinethol - PO 25 mg DAILY@1800 PRIMO Administration Multivitamins/Minerals/Vitamin C 1 tab 07/23/20 10:00 07/28/20 09:32 Tab-A-Vit - PO 1 tab DAILY PRIMO Administration (Mesalamine [ 12 cap 07/27/20 22:00 07/27/20 22:00 Mesalamine Er] 0.375 PO Not Given G Cap) HS [facility] Vital Signs (last) Temp Pulse Resp BP Pulse Ox 99.4 F 95 H 18 98/53 L 98 07/28/20 07:00 07/28/20 07:00 07/28/20 07:00 07/28/20 07:00 07/28/20 07:00 Laboratory (coagulation) PT with INR 14.80 SEC (9.7-13.0) H 07/26/20 09:26 Laboratory 07/28/20 07:05 07/28/20 07:05 MRI Left Knee: Large effusion, no meniscus or ligamentous injuries. No fractures, bony lesions, or significant arthrosis seen. Quadriceps partial tear. COVID Test: Not Detected LYME PCR: Pending ASSESSMENT AND PLAN Ms. Ramirez is a 30 year old female presenting with left knee pain and knee effusion with downward trending ESR/CRP and WBC, no fevers overnight; We have re viewed the imaging and clinical findings in detail, as well as their potential implications. - Unlikely to be septic joint based on examination and history of trauma; Likely inflammatory arthritis. - Patient is being discharged on oral abx, and will follow up with her doctors at [facility] within the next 2-3 days for close follow up. - Synovial fluid culture results; (NGTD - Final); Final gram stain shows no organisms - Blood culture (NGTD - Final) - FU Rheumatology recs - FU Infectious disease recs - Pain control: Transition to oral pain medications, minimize narcotic use - DVT prophylaxis - Ice/Elevation of left knee - Elevate HOB, encourage oral intake - Appreciate medical management (Nutrition optimization, decubitus precautions heel/sacrum) - WBAT LLE / PT - Continue Medical management - No further orthopedic surgical intervention at this time. Please re-consult as needed.
[2020-07-28] MEDS ORDERED: CEPHALEXIN MONOHYDRATE 500 MG CAPSULE (UD) PO SCH (18:00)
== END 2020-07-28 14:25 | disposition home or self-care (01) | DRG 565 ==
LOC: FER 22:14 → FM/S 07-21 01:17 → J6S 07-21 19:30
PROVIDERS: ADMIT Internal Medicine; ATTEND Nurse Practitioner Acute Care
PROC: 0S9D3ZX Drainage of Left Knee Joint, Percutaneous Approach, Diagnostic (ICD-10-PCS; principal; 2020-07-21)
DX: M25.462 Effusion, left knee (principal); K51.90 Ulcerative colitis, unspecified, without complications; N39.0 Urinary tract infection, site not specified; M12.562 Traumatic arthropathy, left knee; S89.82XA Other specified injuries of left lower leg, initial encounter; X58.XXXA Exposure to other specified factors, initial encounter; Y92.89 Other specified places as the place of occurrence of the external cause
CPT/HCPCS: 36415; 71045-TC-FY; 73718-TC-LT; 74176-TC; 80053; 81003; 83605; 83735; 84703; 85025; 85610; 85651; 86140; 86618; 86850; 86900; 86901; 87040; 87070; 87075; 87086; 87205; 87476; 89060; 93005; 93010; 94010; 97116-GP; 97162-GP; 99285-25; J1644; U0003